=== PATIENT | male | born 1940 | race Caucasian/White ===

== ENCOUNTER 2016-12-21 19:39 | Emergency (ER) | payer MEDICARE ==
[2015-10-19 10:37] VITALS: BMI 25.6
[~2016-12-21 19:39] MED LIST: ADVAIR 250/501 DISK INH; BAYER CHEWABLE81 MG PO; BRILINTA90 MG PO; CARTIA XT180 MG PO; COREG 3.1253.125 MG PO; HYDROCHLOROTHIA25 MG PO; LISINOPRIL5 MG PO; LOVASTATIN20 MG PO; PLAVIX75 MG PO
[2016-12-21 20:20] LABS: APPEARANCE CLEAR (CLEAR); BILIRUBIN NEGATIVE (NEGATIVE); COLOR YELLOW (YELLOW); GLUCOSE NEGATIVE (NEGATIVE); KETONE NEGATIVE (NEGATIVE); LEUKOCYTE ESTERASE NEGATIVE (NEGATIVE); NITRITE NEGATIVE (NEGATIVE); PROTEIN NEGATIVE (NEGATIVE); SPECIFIC GRAVITY 1.015 (1.005-1.020); UROBILINOGEN NORMAL (NORMAL)
[2016-12-21 20:22] LABS: BASOPHILS 0.1 % (0-2); EOSINOPHILS 0.6 % (0-7); HEMATOCRIT 40.7 % (42.0-54.0); HEMOGLOBIN 14.2 g/dL (13.5-17.5); IMMATURE GRANULOCYTES 0.2 % (0-5); LYMPHOCYTES 16.2 % (15-50); MCH 31.3 pg (26.0-34.0); MCHC 34.9 g/dL (31.0-37.0); MCV 89.6 fL (80.0-100.0); MEAN PLATELET VOLUME 10.3 fL (7.4-10.4); MONOCYTES 8.5 % (2-11); NEUTROPHILS 74.4 % (40-80); PLATELET COUNT 230 10x3/uL (130-400); RBC 4.54 10x6/uL (4.20-6.10); RDW 13.2 % (11.5-14.5); WBC 9.9 10x3/uL (4.8-10.8)
[2016-12-21 20:37] LABS: ALBUMIN 3.7 g/dL (3.4-5.0); ALKALINE PHOSPHATASE 97 U/L (46-116); ALT (SGPT) 28 U/L (10-68); CALC OSMOLALITY 264 mosm/kg (275-300); CALCIUM 8.8 mg/dL (8.5-10.1); CARBON DIOXIDE 27.3 mmol/L (21.0-32.0); CHLORIDE - SERUM 95 mmol/L (98-107); GLUCOSE 114 mg/dL (74-106); POTASSIUM - SERUM 3.9 mmol/L (3.5-5.1); PROTEIN - SERUM 7.3 g/dL (6.4-8.2); SODIUM 131 mmol/L (136-145); UREA NITROGEN 14 mg/dL (7-18); eGFR NON AFRICAN AMERICAN 77 mL/min (90-120)
[2016-12-21 20:45] LABS: CREATINE KINASE 133 UL (21-232); PRO BNP 195 pg/mL (0-450)
[2016-12-21 20:47] LABS: TROPONIN-I < 0.017 ng/mL (0.000-0.060)
== END 2016-12-21 22:30 | disposition home or self-care (01) ==
LOC: D.ER 19:39
PROVIDERS: Family Medicine
DX: I10 Essential (primary) hypertension (principal); Z91.14 Patient's other noncompliance with medication regimen

== ENCOUNTER 2018-02-28 10:44 | Outpatient (CLI) | payer MEDICARE ==
[~2018-02-28] VITALS: Ht 182.9 cm; Wt 90.9 kg
--- NOTE | ~2018-02-28 | HEMODYNAMI ---
PATIENT:JOSÉ LUIS MARTINEZ MEDICAL RECORD: [id number] : 36 LOCATION:[facility] ADMISSION DATE: 02/28/18 Generatedon:02/28/201813:42 Patient name: JOSÉ LUIS MARTINEZ Patient #: [id number] SSN: : 1940 Date of study: 02/28/2018 Page: Of Hemodynamic Procedure Report Patient Data Patient Demographics Procedure consent was obtained First Name: JSOÉ LUIS Gender: Male Last Name: JUAN : 1940 Middle Initial: H Age: 77 year(s) Patient #: [id number] Race: Additional ID: [id number] Contact details [address]: [address] [place] [address] State: [place] City: [place] Zip code: [address] Past Medical History Allergies: No known allergies Admission Admission Data Admission Date: 02/28/2018 Admission Time: 10:44 Procedure Procedure Types Cath Procedure Diagnostic Procedure LHC LHC w/Coronaries Sedation Charges Moderate Sedation up to 30 minutes PCI Procedure PTCA PTCA Initial Procedure Description Procedure Date Procedure Date: 02/28/2018 Procedure Start Time: 13:00 Procedure End Time: 13:37 Procedure Staff Name Function Osorio Yang MD Performing Physician Mag Galvez RT Monitor Ian Marquez RN Nurse Nancy Powell RT Scrub Procedure Data Cath Procedure Fluoroscopy Diagnostic fluoroscopy Total fluoroscopy Time: 8.3 time: 8.3 min min Diagnostic fluoroscopy Total fluoroscopy dose: dose: 1091 mGy 1091 mGy Contrast Material Contrast Material Type Amount (ml) Isovue 300 94 Entry Location Entry Primary Successful Side Size Upsize Upsize Entry Closure Succes sful Closure Location (Fr) 1 (Fr) 2 (Fr) Remarks Device Remarks Femoral Right 5 Fr 6 Fr Exoseal artery Short Estimated blood loss: 5 ml Diagnostic catheters Device Type Used For End Catheter Placement MULTIPACK JL 4.0 5Fr Left Coronary catheter Angiography MULTIPACK 3DRC 5Fr Right Coronary catheter Angiography MULTIPACK Pigtail 5 Fr LV Angiography catheter Procedure Complications No complications Procedure Medications Medication Administration Route Dosage Oxygen etCO2 Nasal cannula 2 l/min Lidocaine 2% added to field 20 Heparin Flush Bag added to field 2 bags (1000units/500ml NS) 0.9% NaCl I.V. 100 ml/hr Versed I.V. 1 mg Fentanyl I.V. 50 mcg Versed I.V. 1 mg Fentanyl I.V. 50 mcg Versed I.V. 1 mg Heparin Bolus I.V. 9000 units Versed I.V. 1 mg Plavix P.O. 75 mg Hemodynamics Rest Heart Rate: 99 (bpm) Pressure Samples Time Site Value (mmHg) Purpose Heart Use Rate(bpm) 13:12 LV 118/33,37 Snapshot 70 13:12 AO 110/69(89) Pullback 77 13:12 LV 99/17,22 Pullback 77 Gradients Valve Time Site 1 Site 2 Mean SEP/DFP Peak To Heart Use (mmHg) (sec/min) Peak Rate (mmHg) (bpm) Aortic 13:12 LV AO 0 77 99/17,22 110/69(89) Calculations Valve P-P Mean Valve Index Valve Source Name Gradient Area Flow (cm2) Aortic 0 0 Snapshots Pre Cath Intra NCS Post Cath Vital Signs Time Heart Resp SPO2 etCO2 NIBP (mmHg) Rhythm Pain Sedation Rate (ipm) (%) (mmHg) Status Level (bpm) 12:50:07 71 12 99 33.6 136/68(112) NSR 0 (11) 10(A) , No pain 12:54:21 65 14 99 33.5 120/82(99) NSR 0 (11) 10(A) , No pain 12:58:33 72 13 98 35.8 109/63(91) NSR 0 (11) 10(A) , No pain 13:02:43 72 14 99 10.4 111/65(82) NSR 0 (11) 9(A) , No pain 13:06:55 74 18 97 36.5 100/64(80) NSR 0 (11) 9(A) , No pain 13:11:03 82 13 96 33.5 111/67(94) NSR 0 (11) 9(A) , No pain 13:15:09 80 28 98 30.5 102/71(86) NSR 0 (11) 9(A) , No pain 13:19:17 79 23 96 14.1 108/69(86) NSR 0 (11) 9(A) , No pain 13:23:24 83 16 96 30.5 108/70(93) NSR 0 (11) 9(A) , No pain 13:27:34 80 30 97 33.5 108/66(87) NSR 0 (11) 9(A) , No pain 13:31:44 79 17 97 1.4 121/68(91) NSR 0 (11) 9(A) , No pain 13:35:58 80 15 97 26.1 121/73(94) NSR 0 (11) 10(A) , No pain 13:41:40 81 12 98 29 126/80(111) NSR 0 (11) 10(A) , No pain Medications Time Medication Route Dose Verified Delivered Reason Notes Effectiveness by by 12:49:45 Oxygen etCO2 2 Osorio Buffie used for Nasal l/min Isrrael Marquez RN procedure cannula 12:49:52 Lidocaine 2% added 20ml Osorio Osorio for local to vial Isrrael Yang MD anesthetic field 12:49:58 Heparin Flush added 2 Osorio Osorio used for Bag to bags Isrrael Yang MD procedure (1000units/500ml field NS) 12:50:09 0.9% NaCl I.V. 100 Osorio Osorio used for ml/hr Isrrael Yang MD procedure 12:56:46 Versed I.V. 1 mg Osorio Buffie for sedation Isrrael Marquez RN 12:56:52 Fentanyl I.V. 50 Osorio Buffie for sedation mcg Isrrael Marquez RN 13:02:03 Versed I.V. 1 mg Osorio Buffie for sedation Isrrael Marquez RN 13:02:07 Fentanyl I.V. 50 Osorio Buffie for sedation mcg Isrrael Marquez RN 13:10:57 Versed I.V. 1 mg Osorio Buffie for sedation Isrrael Marquez RN 13:17:53 Heparin Bolus I.V. 9000 Osorio Buffie for verif ied units Isrrael Marquez RN anticoagulation with dr yang 13:24:13 Versed I.V. 1 mg Osorio Buffie for sedation Isrrael Marquez RN 13:41:07 Plavix P.O. 75 mg Osorio Buffie for Isrrael Marquez RN anticoagulation Procedure Log Time Note 12:31:11 Ina Marquez RN sent for patient. Start room use. 12:31:12 Time tracking: Regular hours (M-F 7:00 - 5:00) 12:31:16 Plan of Care:Hemodynamics will remain stable., Cardiac rhythm will remain stable., Comfort level will be maintained., Respiratory function will remain adequate., Patient/ family verbilizes understanding of procedure., Procedure tolerated without complication., Recovers from procedure without complications.. 12:33:29 Diagnostic Cath Status : Elective 12:39:23 Patient received from Pre/Post Procedure Room to CCL 1 Alert and oriented. Tansferred to table in Supine position. 12:39:24 Warm blankets applied, and abel hugger turned on for patient comfort. 12:39:24 Correct patient and procedure confirmed by team. 12:39:26 Signed procedure consent form obtained from patient. 12:39:28 ECG and BP/O2 sat monitors applied to patient. 12:48:56 Baseline sample Acquired. 12:48:56 Vital chart was started 12:49:05 Baseline sample Acquired. 12:49:09 Rhythm: sinus rhythm 12:49:29 Full Disclosure recording started 12:49:45 Oxygen 2 l/min etCO2 Nasal cannula was administered by Ian Marquez RN; used for procedure; 12:49:46 H&P Date Dictated: 02/27/2018 Within 30 days and on chart., H&P Addendum completed by physician on day of procedure. (MUST COMPLETE FOR ALL OUTPATIENTS). 12:49:48 Pre-procedure instructions explained to patient. 12:49:48 Pre-op teaching completed and patient verbalized understanding. 12:49:51 Family in waiting room. 12:49:52 Lidocaine 2% 20ml vial added to field was administered by Osorio Yang MD; for local anesthetic; 12:49:52 Patient NPO since Midnight. 12:49:58 Heparin Flush Bag (1000units/500ml NS) 2 bags added to field was administered by Osorio Yang MD; used for procedure; 12:49:59 Patient allergic to No known allergies 12:50:01 Is the patient allergic to Iodine/contrast media? No. 12:50:07 Is patient on blood thinner?Yes 12:50:09 0.9% NaCl 100 ml/hr I.V. was administered by Osorio Yang MD; used for procedure; 12:50:11 ACC The patient was administered the following blood thiners within the last 24 hours: ACCPlavix 12:50:14 Patient diabetic? No. 12:50:15 ----Pre-sedation anethsthesia assessment.---- 12:50:17 Previous problem with sedation/anesthesia? No ? 12:50:20 Snore? Yes 12:50:21 Sleep apnea? No 12:50:23 Deviated septum? No 12:50:24 Opens mouth fully? Yes 12:50:26 Sticks out tongue? Yes 12:50:29 Airway obstruction? No ? 12:50:35 Dentures? Yes out 12:50:44 Pre procedure: right dorsailis pedis pulse 1+ Palpable, but thready & weak; easily obliterated 12:50:50 Patient pain scale 0/10 ?. 12:53:10 IV patent on arrival in left forearm with 0.9% NaCl at O. 12:53:12 Lab results completed and on chart. 12:53:18 Right groin area was prepped with chlora-prep and draped in sterile fashion 12:53:19 Alarms reviewed by R. N. 12:53:26 Sharps counted by scrub and verified by R.N. 12:53:27 Physician arrived 12:53:28 --------ALL STOP TIME OUT------ 12:53:28 Final Timeout: patient, procedure, and site verified with staff and physician. All members of the team are in agreement. 12:53:30 Right groin site verified by team. 12:53:32 Physical assessment completed. ASA score P 2 - A patient with mild systemic disease as per Osorio Yang MD. 12:53:36 Sedation plan: IV Moderate Sedation Medication:Versed, Fentanyl 12:53:42 Use device set Femoral Dx 12:53:43 ACIST Syringe (95911) opened to sterile field. 12:53:43 Bag Decanter () opened to sterile field. 12:53:43 Medline Cath Pack ([id number]) opened to sterile field. 12:53:44 DIAGNOSTIC WIRE .035 260cm J wire (745352) opened to sterile field. 12:53:45 ACIST Hand Control (97446) opened to sterile field. 12:53:46 ACIST Manifold (18777) opened to sterile field. 12:53:46 DIAGNOSTIC Multipack 5Fr catheter set (FB2379) opened to sterile field. 12:53:46 Tegaderm 4 x 4 (1626W) opened to sterile field. 12:53:48 SHEATH Prelude 5Fr 0.035 (ULZ-5K-41-035) opened to sterile field. 12:56:35 Zero performed for pressure channel P1 12:56:46 Versed 1 mg I.V. was administered by Ian Marquez RN; for sedation; 12:56:52 Fentanyl 50 mcg I.V. was administered by Ian Marquez RN; for sedation; 13:00:22 Procedure started. 13:00:29 Local anesthetic to right femoral artery with Lidocaine 2% by Osorio Yang MD.INITIAL ACCESS ONLY 13:00:43 A 5 Fr sheath was inserted into the Right Femoral artery 13:02:03 Versed 1 mg I.V. was administered by Ian Marquez RN; for sedation; 13:02:07 Fentanyl 50 mcg I.V. was administered by Ian Marquez RN; for sedation; 13:05:51 A MULTIPACK JL 4.0 5Fr catheter was advanced over the wire and used for Left Coronary Angiography. 13:09:02 LCA angiography performed. 13:09:05 Injector settings: Ml/sec: 3, Volume: 6, 13:09:22 Catheter removed. 13:09:27 A MULTIPACK 3DRC 5Fr catheter was advanced over the wire and used for Right Coronary Angiography. 13:10:43 RCA angiography performed. 13:10:46 Injector settings: Ml/sec: 3, Volume: 6, 13:10:51 Catheter removed. 13:10:57 Versed 1 mg I.V. was administered by Ian Marquez RN; for sedation; 13:11:45 A MULTIPACK Pigtail 5 Fr catheter was advanced over the wire and used for LV Angiography. 13:12:06 LV hemodynamics recorded. 13:12:08 LV gram done using [place] 13:12:11 Injector settings: Ml/sec: 5, Volume: 15, 13:12:22 EF : 55 % 13:13:25 Catheter removed. 13:13:35 Proceeding to intervention. 13:13:53 BMW 300cm Adel 2 J wire ([id number]) opened to sterile field. 13:13:54 INFLATOR Merit Amandak (HW0599) opened to sterile field. 13:13:55 SHEATH Prelude 6Fr 0.035 (UWQ-4K-33-035) opened to sterile field. 13:14:36 GUIDE 6FR AR 1.0 catheter (HX8VW42) opened to sterile field. 13:15:07 TUBING High Pressure Extension Tubing (Isrrael) ([id number]) opened to sterile field. 13:16:53 Sheath upsized to a 6 Fr Short. 13:16:59 6 Fr sr 1 guide catheter was inserted over the wire 13:17:10 bmw wire advanced. 13:17:53 Heparin Bolus 9000 units I.V. was administered by Ian Marquez RN; for anticoagulation; verified with dr yang 13:18:18 Wire advanced across lesion. 13:20:35 Inflate balloon Inflation number: 1 A EMERGE OTW 3.5 x 15 balloon ([id number]) was prepped and advanced across the Mid RCA, then inflated to 6 ARTHUR for 0:10 (min:sec). 13:21:01 Inflation number: 2 The EMERGE OTW 3.5 x 15 balloon ([id number]) was reinflated across the Mid RCA, to 10 ARTHUR for 0:10 (min:sec). 13:22:33 Inflation number: 3 The EMERGE OTW 3.5 x 15 balloon ([id number]) was reinflated across the Mid RCA, to 10 ARTHUR for 0:10 (min:sec). 13:24:13 Versed 1 mg I.V. was administered by Ian Marquez RN; for sedation; 13:24:29 Inflation number: 4 The EMERGE OTW 3.5 x 15 balloon ([id number]) was reinflated across the Mid RCA, to 8 ARTHUR for 0:10 (min:sec). 13:34:40 Balloon removed over the wire. 13:34:42 Wire removed. 13:34:42 Guide catheter removed. 13:35:16 EXOSEAL 6Fr (EX600) opened to sterile field. 13:35:27 Sheath removed intact; hemostasis achieved with Exoseal to the Right Femoral artery. 13:35:51 Procedure ended.(Physican Out) 13:36:06 Fluoroscopy time 08.30 minutes. 13:36:10 Flurop Dose total: 1091 13:36:10 Fluoroscopy dose: 1091 mGy 13:36:23 Contrast amount:Isovue 300 94ml. 13:36:25 Sharps counted by scrub and verified by R.N. 13:36:26 Insertion/operative site no bleeding no hematoma. 13:36:28 Post-op/insertion site Right Femoral artery dressed using a 4 x 4 and Tegaderm. 13:36:31 Post right femoral artery:stable 13:36:33 Post Procedure Pulses reassessed and unchanged 13:36:36 Post procedure rhythm: unchanged. 13:36:39 Estimated blood loss: 5 ml 13:36:41 Post procedure instruction explained to patient.Patient verbalizes understanding. 13:36:41 Patient needs reinforcement of post procedure teaching. 13:37:05 Procedure type changed to Cath procedure, Diagnostic procedure, LHC, LHC w/Coronaries, Sedation Charges, Moderate Sedation up to 30 minutes, PCI procedure, PTCA, PTCA Initial 13:37:07 Procedure and supply charges have been captured, reviewed, submitted and are correct. 13:37:12 Procedure Complication : No complications 13:37:14 Vital chart was stopped 13:37:15 See physician's report for complete and final results. 13:37:18 Report given to Pre/Post Procedure Room. 13:37:21 Patient transfered to Pre/Post Procedure Room with Stretcher. 13:37:22 Procedure ended. 13:37:22 Full Disclosure recording stopped 13:37:36 ACC-PCI Only Patient was given prescriptions, or instructed by Osorio Yang MD to start/continue the following medications upon discharge: Plavix 13:37:37 End room use (Document Last) 13:41:07 Plavix 75 mg P.O. was administered by Ian Marquez RN; for anticoagulation; Intervention Summary Intervention Notes Time ActionType Lesion and Equipment Action# Pressure Duration Attributes Used 13:20:35 Inflate Mid RCA EMERGE OTW 1 6 00:10 balloon 3.5 x 15 balloon ([id number]) 13:21:01 Reinflate Mid RCA EMERGE OTW 2 10 00:10 balloon 3.5 x 15 balloon ([id number]) 13:22:33 Reinflate Mid RCA EMERGE OTW 3 10 00:10 balloon 3.5 x 15 balloon ([id number]) 13:24:29 Reinflate Mid RCA EMERGE OTW 4 8 00:10 balloon 3.5 x 15 balloon ([id number]) Device Usage Item Name Manufacture Quantity Catalog Number Hospital Part Current Minimal Lot# / Charge Number Stock Stock Serial# Code ACIST Syringe Acist 1 54587 849778 838781 [id number] 20 (17250) Medical Systems Inc Bag Decanter Microtek 1 2001S 608013 94451 437450 5 () Medical Inc. Medline Cath Cardinal 1 [id number] 602587 47854 883936 5 Pack Health ([id number]) DIAGNOSTIC WIRE St Jacob 1 346579 955004 697151 811205 30 .035 260cm J wire (659334) ACIST Hand Acist 1 89362 204367 040535 442303 5 Control (61260) Medical Systems Inc ACIST Manifold Acist 1 59056 611411 429584 923281 5 (09747) Medical Systems [facility] DIAGNOSTIC Cardinal 1 [id number] 418149 18523 676968 30 Multipack 5Fr Health catheter set (KU3805) Tegaderm 4 x 4 3M 1 1626W 775034 632109 852870 5 (1626W) SHEATH Prelude Merit 1 ICW-4J-27-035 368813 290812 509716 5 5Fr 0.035 Medical (CEQ-1S-53-035) MULTIPACK JL Cardinal 1 [id number] 5 4.0 5Fr Health catheter MULTIPACK 3DRC Cardinal 1 984761 5 5Fr catheter Health MULTIPACK Cardinal 1 323269 5 Pigtail 5 Fr Health catheter BMW 300cm George 1 [id number] 978168 784003 719073 5 Adel 2 J Vascular wire ([id number]) INFLATOR Merit Merit 1 PL1302 289381 048652 149187 15 BasixCompak Medical (GP5703) SHEATH Prelude Merit 1 AZZ-2K-12-35 893896 3713030 687190 5 6Fr 0.035 Medical (RQC-9N-55-035) GUIDE 6FR AR Medtronic 1 [id number] 197009 48281 368766 1 1.0 catheter (PX4LE46) TUBING High Merit 1 [id number] 836834 57185 679974 10 Pressure Medical Extension Tubing (Yang) (NR9787S) EMERGE OTW 3.5 Millstone 1 [id number] 695298 725792 554574 5 [id number] x 15 balloon Scientific ([id number]) EXOSEAL 6Fr Cardinal 1 EX600 554748 572837 770188 10 (EX600) Health Signature Audit [place] Stage Time Signature Unsigned Intra-Procedure 02/28/2018 Mag Galvez 1:42:02 PM RT(R) Signatures Monitor : Mag Galvez RT Signature : Date : Time : [id number] [place] [address]
[2018-02-28 11:17] VITALS: BP 161/71; Ht 182.9 cm; Wt 90.9 kg
[2018-02-28 11:36] LABS: BASOPHILS 0.1 % (0-2); EOSINOPHILS 0.7 % (0-7); HEMATOCRIT 39.9 % (42.0-54.0); HEMOGLOBIN 13.8 g/dL (13.5-17.5); IMMATURE GRANULOCYTES 0.4 % (0-5); LYMPHOCYTES 15.5 % (15-50); MCH 31.5 pg (26.0-34.0); MCHC 34.6 g/dL (31.0-37.0); MCV 91.1 fL (80.0-100.0); MEAN PLATELET VOLUME 9.9 fL (7.4-10.4); MONOCYTES 11.2 % (2-11); NEUTROPHILS 72.1 % (40-80); PLATELET COUNT 255 10x3/uL (130-400); RBC 4.38 10x6/uL (4.20-6.10)
[2018-02-28 11:48] LABS: CALC OSMOLALITY 260 mosm/kg (275-300); CALCIUM 8.6 mg/dL (8.5-10.1); CARBON DIOXIDE 30.7 mmol/L (21.0-32.0); CHLORIDE - SERUM 95 mmol/L (98-107); GLUCOSE 101 mg/dL (74-106); POTASSIUM - SERUM 4.2 mmol/L (3.5-5.1); SODIUM 130 mmol/L (136-145); UREA NITROGEN 13 mg/dL (7-18); eGFR NON AFRICAN AMERICAN 76 mL/min (90-120)
== END 2018-02-28 17:25 | disposition home or self-care (01) ==
LOC: D.CATH 10:44
PROVIDERS: Internal Medicine Cardiovascular Disease
DX: I25.119 Atherosclerotic heart disease of native coronary artery with unspecified angina pectoris (principal); T82.855A Stenosis of coronary artery stent, initial encounter; Z01.812 Encounter for preprocedural laboratory examination

== ENCOUNTER 2018-07-30 03:01 | Inpatient (IN) | payer MEDICARE ==
[~2018-07-30] VITALS: Ht 182.9 cm; Wt 91.4 kg
[2018-07-30 03:36] LABS: BASOPHILS 0.1 % (0-2); EOSINOPHILS 0 % (0-7); HEMATOCRIT 36.3 % (42.0-54.0); IMMATURE GRANULOCYTES 0.6 % (0-5); MCH 31.3 pg (26.0-34.0); MCHC 35.8 g/dL (31.0-37.0); MCV 87.5 fL (80.0-100.0); MEAN PLATELET VOLUME 9.6 fL (7.4-10.4); MONOCYTES 10.2 % (2-11); NEUTROPHILS 80.1 % (40-80); PLATELET COUNT 237 10x3/uL (130-400); RBC 4.15 10x6/uL (4.20-6.10); RDW 13.5 % (11.5-14.5); WBC 10.4 10x3/uL (4.8-10.8)
[2018-07-30 03:41] LABS: APTT 34.8 SECONDS (22.8-39.4); INR 1.15 (0.85-1.17); PROTIME 14.2 SECONDS (11.6-15.0)
[2018-07-30 03:57] LABS: ALBUMIN 3.2 g/dL (3.4-5.0); ALKALINE PHOSPHATASE 101 U/L (46-116); ALT (SGPT) 23 U/L (10-68); BILIRUBIN - TOTAL 0.45 mg/dL (0.2-1.3); CALCIUM 8.3 mg/dL (8.5-10.1); CARBON DIOXIDE 24.7 mmol/L (21.0-32.0); CKMB 2.8 U/L (0.0-3.6); CREATINE KINASE 142 UL (21-232); CREATININE - SERUM 0.9 mg/dL (0.6-1.3); GLUCOSE 105 mg/dL (74-106); POTASSIUM - SERUM 3.6 mmol/L (3.5-5.1); PRO BNP 745 pg/mL (0-450); UREA NITROGEN 12 mg/dL (7-18); eGFR NON AFRICAN AMERICAN 86 mL/min (90-120)
[2018-07-30 03:59] LABS: CALC OSMOLALITY 237 mosm/kg (275-300); CHLORIDE - SERUM 83 mmol/L (98-107); SODIUM 118 mmol/L (136-145); TROPONIN-I < 0.017 ng/mL (0.000-0.060)
--- NOTE | 2018-07-30 04:17 | NUR ---
PT STATES HAS HAD TROUBLE WITH URINATION. BLADDER SCAN PERFORMED. 180ML NOTED. PT THEN VOIDED 100ML.
[2018-07-30 04:28] LABS: APPEARANCE CLEAR (CLEAR); BILIRUBIN NEGATIVE (NEGATIVE); COLOR YELLOW (YELLOW); GLUCOSE NEGATIVE (NEGATIVE); KETONE SMALL mg/dL (NEGATIVE); NITRITE NEGATIVE (NEGATIVE); PROTEIN NEGATIVE (NEGATIVE); UROBILINOGEN NORMAL (NORMAL)
--- NOTE | 2018-07-30 04:31 | NUR ---
INSTRUCTED TO STOP IV FLUIDS AND OBTAIN FLU SWAB.
[2018-07-30 05:34] VITALS: BP 150/88; BMI 26.5
--- NOTE | 2018-07-30 06:00 | NUR ---
[facility] RECIEVED REPORT FROM [facility]. PT ARRIVED IN BED. PT INITIAL VSS, PT IS CURRENTLY ON DROPLET ISOLATION. TESTED + FOR FLU. AT BEDSIDE. PT 02 @2L. DENIES ANY NEED FOR PAIN. PT IS A POOR HISTORIAN, BUT WAS ABLE TO ANSWER MOST OF THE QUESTIONS. PT STATES HE WANT SOMETHING TO HELP HIM GO TO SLEEP, BUT NO MEDS ORDERED BY THE PROVIDER AT THIS TIME. PT IS CURRENTLY RESTING IN BED WITH EYES OPEN. CL IN REACH, BED IN LOW, SR UP X2.
[2018-07-30 07:54] VITALS: BP 164/80
--- NOTE | 2018-07-30 08:41 | NUR ---
PT C/O NOT BEING ABLE TO SLEEP AND DEMANDING A SLEEP MEDICATION. EXPLAINED TO PT WE ARENT GOING TO GIVE SLEEP MEDICATIONS IN THE ORTHOTIST OR PROSTHETIST. PT STATES "WELL I HAVENT SLEPT IN 2 DAYS" MADE PT COMFORTABLE AND WILL TRY TO ENCOURAGE HIM TO TRY AND REST. PT NOW CALLING STATING "I CANT BREATHE, I NEED SOMETHING NOW" RR NONLABORED WITH NC @3L IN PLACE. PAGED RESPIRATORY AND THEY ARE HERE TO GIVE PRN [place] REQUESTED. NO FURTHER NEEDS. WILL CTM.
[2018-07-30 10:48] LABS: BASOPHILS 0 % (0-2); EOSINOPHILS 0 % (0-7); HEMATOCRIT 31.6 % (42.0-54.0); HEMOGLOBIN 11.4 g/dL (13.5-17.5); IMMATURE GRANULOCYTES 0.5 % (0-5); LYMPHOCYTES 4.6 % (15-50); MCH 31.1 pg (26.0-34.0); MCHC 36.1 g/dL (31.0-37.0); MCV 86.1 fL (80.0-100.0); MEAN PLATELET VOLUME 9.5 fL (7.4-10.4); MONOCYTES 10.8 % (2-11); NEUTROPHILS 84.1 % (40-80); PLATELET COUNT 214 10x3/uL (130-400); RBC 3.67 10x6/uL (4.20-6.10); RDW 13.4 % (11.5-14.5); WBC 10.2 10x3/uL (4.8-10.8)
[2018-07-30 11:06] LABS: CALC OSMOLALITY 232 mosm/kg (275-300); CALCIUM 7.9 mg/dL (8.5-10.1); CARBON DIOXIDE 28.5 mmol/L (21.0-32.0); CREATININE - SERUM 0.8 mg/dL (0.6-1.3); GLUCOSE 116 mg/dL (74-106); POTASSIUM - SERUM 3.2 mmol/L (3.5-5.1); UREA NITROGEN 11 mg/dL (7-18); eGFR NON AFRICAN AMERICAN > 90 mL/min (90-120)
[2018-07-30 11:08] LABS: CHLORIDE - SERUM 82 mmol/L (98-107); SODIUM 115 mmol/L (136-145)
--- NOTE | 2018-07-30 11:14 | NUR ---
PT NEEDING TELEMETRY. PAGED TELEMETRY MONITER TECH [facility]END[facility] AND THEY HAVE NO MONITERS CURRENTLY. WILL CONTINUE TO WAIT.
[2018-07-30 11:17] VITALS: BP 118/56
[2018-07-30 11:26] LABS: % SATURATION 5 % (15-55); IRON 12 ug/dl (35-150); TOTAL IRON BIND CAPACITY 208 ug/dl (260-445); UNSAT IRON BIND CAPACITY 196 ug/dl (150-375)
[2018-07-30 11:27] LABS: MAGNESIUM - SERUM 1.3 mg/dL (1.8-2.4)
--- NOTE | 2018-07-30 11:31 | NUR ---
LAB CALLED CRITICAL LOW SODIUM AND CHLORIDE. NOTIFIED PRIMARY AND NO NEW ORDERS.
[2018-07-30] MEDS ORDERED: LISINOPRIL40 MG PO (12:17)
[2018-07-30 12:50] LABS: CKMB 3.7 U/L (0.0-3.6); CREATINE KINASE 172 UL (21-232); TROPONIN-I < 0.017 ng/mL (0.000-0.060)
[2018-07-30 13:25] VITALS: Ht 182.9 cm; Wt 91.4 kg
--- NOTE | 2018-07-30 14:54 | NUR ---
PT STATES HE FEELS JUST HOT AND CRAPPY OVERALL. TURNED PTS AIR DOWN AND WILL TRY TO FIND HIM A FAN. PT LYING BACK IN BED TRYING TO GET SOME REST. LEAVING TO GO GET SOME REST SHE WAS PRETTY SICK HERSELF WELL. PT VOICED THANKS AND DENIES ANY FURTHER NEEDS AT THIS TIME. CL IN REACH, BED IN LOWEST, SIDE RAILS X2. WILL CTM.
[2018-07-30 15:28] VITALS: BP 168/87
--- NOTE | 2018-07-30 16:21 | NUR ---
PT STILL C/O SOB AND NOT BEING ABLE TO BREATH. PAGED RESPIRATORY FOR A TREATMENT. PULSE OX 97% ON 2L NC. WILL ALSO PROVIDE PT WITH A FAN TO SEE IF IT HELPS. PT VOICED THANKS AND DENIES ANY FURTHER NEEDS AT THIS TIME. CL IN REACH. WILL CTM.
[2018-07-30 18:00] LABS: CKMB 6.3 U/L (0.0-3.6); TROPONIN-I < 0.017 ng/mL (0.000-0.060)
[2018-07-30 18:01] LABS: CREATINE KINASE 265 UL (21-232)
--- NOTE | 2018-07-30 19:51 | NUR ---
PT EXTREMELY ANXIOUS AND AGITATED. DISCUSSED WITH PRIMARY AND GOT NEW MEDICATION TO HELP WITH ANXIETY. PT VOICED TAHNKS AND IS ALL SET UP FOR BED TRYING TO REST. NO CURRENT NEEDS. WILL CTM. BEDSIDE SHIFT REPORT GIVEN.
--- NOTE | 2018-07-30 20:15 | NUR ---
PATIENT RESTING IN BED WITH EYES CLOSED AND NO S/S OF DISTRESS. BED IN LOWEST POSITION AND CALL LIGHT WITHIN REACH. WILL CONTINUE TO MONITOR.
[2018-07-30 21:01] VITALS: BP 169/86
--- NOTE | 2018-07-30 21:23 | NUR ---
NOTIFIED BY CT THAT THE PATIENT IS NOT COOPERATING AND THEY ARE BRINGING HIM BACK TO THE ROOM. STATED THEY WILL TRY AGAIN LATER.
[2018-07-30 23:16] LABS: CKMB 7.9 U/L (0.0-3.6); CREATINE KINASE 278 UL (21-232); TROPONIN-I < 0.017 ng/mL (0.000-0.060)
--- NOTE | 2018-07-31 00:15 | NUR ---
PATIENT SITTING UP ON THE SIDE OF THE BED PER THE PATIENT'S REQUEST. PATIENT DENIED NEEDS AND SAID HE WANTED TO SIT UP FOR A MINUTE. I ENSURED THE PATIENT'S ELIZABETH MAT WAS TURNED ON PRIOR TO LEAVING THE ROOM. I STEPPED OUTSIDE OF THE ROOM AND REMOVED ISOLATION PPE. PATIENT STOOD UP OFF OF THE BED. I AKSED THE PATIENT WHERE HE WAS GOING. HE STATED "I HAVE TO GO TO THE BATHROOM". I WAS PUTTING BACK ON ISOLATION PPE I ASKED THE PATIENT TO SIT DOWN AND TOLD HIM I WOULD HELP HIM. THE PATIENT STATED "I'M OK" AND HEADED FOR THE BATHROOM. I WAS ENTERING THE ROOM I HEARD SEVERAL LOUD NOISES IN THE BATHROOM. WHEN I ENTERED THE BATHROOM THE PATIENT WAS LYING IN THE SHOWER ON HIS BACK WITH HIS HEAD AGAINST THE WALL. THE PATIENT STATED "I FELL". AT THAT TIME I TOLD THE PATIENT TO HOLD ON WHILE I GOT HELP. I CALLED OUT TO THE DESK FOR CORRIE ALCAZAR TO HELP ME GET THE PATIENT UP. OTTONIEL AND I ASSISTED THE PATIENT TO HIS FEET AND HELPED HIM BACK TO BED. UPON ASSESSMENT THE PATIENT HAS A LACERATION TO HIS HEAD, AND A LACERATION TO HIS RIGHT ELBOW. I CLEANSED BOTH WOUNDS. THE PATIENT WAS ALERT AND ORIENTED AT THIS TIME.
--- NOTE | 2018-07-31 00:19 | NUR ---
NOTIFIED POLICE MATRON, RUTHANN THAT THE PATIENT HAD FALLEN.
--- NOTE | 2018-07-31 00:20 | NUR ---
NOTIFIED DR. MUELLER THAT THE PATIENT HAD FALLEN IN THE BATHROOM. I TOLD DR. MUELLER THAT THE PATIENT HAD HIT HIS HEAD IN THE SHOWER, AND THAT THE PATIENT HAD A LACERATION TO HIS HEAD AND RIGHT ELBOW. DR. MUELLER ORDERED A STAT CT OF THE HEAD.
--- NOTE | 2018-07-31 00:33 | NUR ---
NOTIFIED RADIOLOGY THAT I PUT AN ORDER IN FOR A STAT HEAD CT.
--- NOTE | 2018-07-31 00:35 | NUR ---
NOTIFIED SARAH MARTINEZ, THE PATIENT'S SPOUSE THAT THE PATIENT HAD FALLEN.
--- NOTE | 2018-07-31 01:27 | NUR ---
NOTIFIED BY DR. GUTIERRES THAT THE PATIENT SHOWED A SMALL BLEED ON THE CT SCAN
--- NOTE | 2018-07-31 01:32 | NUR ---
NOTIFIED DR. MUELLER THAT DR. GUTIERRES HAD CALLED BACK WITH RESULTS. READ DR. MUELLER THE RESULTS OF THE CT SCAN. I ALSO NOTIFIED DR. MUELLER THAT DR. GUTIERRES STATED THAT THE PATIENT WAS NEGATIVE FOR A PE.
--- NOTE | 2018-07-31 01:45 | NUR ---
NOTIFIED DR. ADAMS THAT HE HAD BEEN CONSULTED ON THE PATIENT. EXPLAINED TO DR. ADAMS THAT THE PATIENT WAS FOUND ON THE FLOOR IN THE BATHROOM AND THAT THE PATIENT STATED HE FELL. I ALSO READ DR. ADAMS THE RESULTS OF THE PATIENT'S STAT CT SCAN. DR. ADAMS ORDERED Q1H NEURO CHECKS AND A REPEAT HEAD CT AT 0700. ORDERED ENTERED.
[2018-07-31 02:01] VITALS: BP 176/91
[2018-07-31 06:11] VITALS: BP 153/83
[2018-07-31 08:08] VITALS: BP 138/82
[2018-07-31 08:11] LABS: BASOPHILS 0 % (0-2); EOSINOPHILS 0 % (0-7); HEMATOCRIT 34.9 % (42.0-54.0); HEMOGLOBIN 12.5 g/dL (13.5-17.5); IMMATURE GRANULOCYTES 0.3 % (0-5); LYMPHOCYTES 9.4 % (15-50); MCH 30.9 pg (26.0-34.0); MCHC 35.8 g/dL (31.0-37.0); MCV 86.4 fL (80.0-100.0); MEAN PLATELET VOLUME 9.6 fL (7.4-10.4); MONOCYTES 11.6 % (2-11); NEUTROPHILS 78.7 % (40-80); PLATELET COUNT 224 10x3/uL (130-400); RBC 4.04 10x6/uL (4.20-6.10); RDW 13.5 % (11.5-14.5)
--- NOTE | 2018-07-31 08:17 | NUR ---
AM MEDS GIVEN AT THIS TIME. PT A/O X4, PT A LITTLE SOB ON 2L NC. INSTRUCTED PT TO TAKE DEEP BREATHS. PROVIDED PT WITH URINAL SO HE COULD URINATE. PT VOIDED ABOUT 250CC OF YELLOW URINE. RT AC IV SL. MONITOR SHOWING ST 104 WITH PAC. INSTRUCTED PT TO CALL WHEN HE NEEDS ASSISTANCE, NOT TO GET UP BY HIMSELF. PT VERBALIZED UNDERSTANDING. CALL LIGHT IN REACH, ELIZABETH ALARM ON. DOOR LONGTERM OPEN. NAD NOTED, WILL CONTINUE TO MONITOR.
[2018-07-31 08:23] LABS: CALC OSMOLALITY 242 mosm/kg (275-300); CALCIUM 8.6 mg/dL (8.5-10.1); CARBON DIOXIDE 27.2 mmol/L (21.0-32.0); CHLORIDE - SERUM 86 mmol/L (98-107); CREATININE - SERUM 0.8 mg/dL (0.6-1.3); GLUCOSE 92 mg/dL (74-106); SODIUM 121 mmol/L (136-145); UREA NITROGEN 10 mg/dL (7-18); eGFR NON AFRICAN AMERICAN > 90 mL/min (90-120)
[2018-07-31 08:31] LABS: POTASSIUM - SERUM 3.7 mmol/L (3.5-5.1)
[2018-07-31 09:24] LABS: FOLATE (FOLIC ACID) - SERUM 15.2 ng/mL (>3.0)
[2018-07-31 12:39] VITALS: BP 146/89
[2018-07-31 16:13] VITALS: BP 128/85
--- NOTE | 2018-07-31 19:20 | NUR ---
PATIENT SITTING UP ON SIDE OF BED. NO SIGNS OF DISTRESS. DENIES HAVING ANY NEEDS AT THIS TIME. BED IN LOWEST POSITION. SIDE RAILS UP. CALL LIGHT IN REACH. CONTINUE PLAN OF CARE.
--- NOTE | 2018-07-31 19:30 | NUR ---
PT SITTING UP ON SIDE OF BED. CALL LIGHT IN REACH. PT DENIES NEEDS OR PAIN AT THIS TIME. BED IN LOW. SIDE RAILS X2. WILL CONTINUE TO MONITOR.
[2018-07-31 20:00] VITALS: BP 174/90
--- NOTE | 2018-07-31 22:48 | NUR ---
PT LYING IN BED. CALL LIGHT IN REACH. DENIES NEEDS OR PAIN AT THIS TIME. BED IN LOW.
--- NOTE | 2018-07-31 23:47 | NUR ---
CALLED RESPIRATORY FOR PRN UPDRAFT PER PT REQUEST, PT STATES HE FEELS TIGHT AND VERY CONGESTED, BILATERAL WHEEZING ASSESSED
[2018-08-01] VITALS: BP 163/82
--- NOTE | 2018-08-01 02:17 | NUR ---
LYING IN BED ON RIGHT SIDE EYES CLOSED RESTING. RR EVEN AND UNLABORED. CALL LIGHT WITHIN REACH, FALL PRECAUTIONS IN PLACE. WILL CONTINUE TO MONITOR
[2018-08-01 04:00] VITALS: BP 155/86
--- NOTE | 2018-08-01 05:51 | NUR ---
LYING IN BED ON LEFT SIDE EYES CLOSED RESTING. RR EVEN AND UNLABORED. CONTINUES ON 2L VIA NC. CALL LIGHT WITHIN REACH, FALL PRECAUTIONS IN PLACE
[2018-08-01 07:35] VITALS: BP 131/57
--- NOTE | 2018-08-01 08:49 | NUR ---
PT CALLED REQUESTING PRN BREATHING TX. PAGED RESPIRATORY THERAPIST HUYEN AND HE WILL COME BY SHORTLY. PT VOICED THANKS NO FURTHER NEEDS. WILL CTM.
[2018-08-01 10:09] LABS: BASOPHILS 0 % (0-2); EOSINOPHILS 0.2 % (0-7); HEMATOCRIT 36.6 % (42.0-54.0); IMMATURE GRANULOCYTES 0.4 % (0-5); LYMPHOCYTES 8.9 % (15-50); MCH 31.2 pg (26.0-34.0); MCHC 35.5 g/dL (31.0-37.0); MCV 87.8 fL (80.0-100.0); MEAN PLATELET VOLUME 10.1 fL (7.4-10.4); MONOCYTES 6.6 % (2-11); NEUTROPHILS 83.9 % (40-80); RBC 4.17 10x6/uL (4.20-6.10); RDW 13.8 % (11.5-14.5); WBC 8.5 10x3/uL (4.8-10.8)
[2018-08-01 10:16] LABS: CALC OSMOLALITY 255 mosm/kg (275-300); CALCIUM 8.3 mg/dL (8.5-10.1); CARBON DIOXIDE 30.6 mmol/L (21.0-32.0); CHLORIDE - SERUM 88 mmol/L (98-107); CREATININE - SERUM 0.9 mg/dL (0.6-1.3); GLUCOSE 158 mg/dL (74-106); POTASSIUM - SERUM 4.2 mmol/L (3.5-5.1); SODIUM 126 mmol/L (136-145); UREA NITROGEN 12 mg/dL (7-18); eGFR NON AFRICAN AMERICAN 86 mL/min (90-120)
[2018-08-01 10:31] LABS: PLATELET COUNT 269 10x3/uL (130-400)
[2018-08-01 11:32] VITALS: BP 133/75
--- NOTE | 2018-08-01 17:17 | MORECARE ---
CASE MANAGEMENT DISCHARGE SUMMARY PATIENT: JOSÉ LUIS MARTINEZ UNIT: [id number] ADM DATE: 07/30/18 AGE: 77 : 38 SEX: M ROOM/BED: D.1204 AUTHOR: SUSANNE OROZCO PHYSICIAN: REFERRING PHYSICIAN: SURI MUELLER MD DATE OF SERVICE: 08/01/18 Discharge Plan Patient Name: JOSÉ LUIS MARTINEZ [facility] [facility] 1940 Planned Disposition: Anticipated Discharge Date: Discharge Date: Expected LOS: Initial Reviewer: [email or web address] Initial Review Date: 08/01/2018 Generated: 08/01/18 6:17 pm Coverage Notice Reviewer: [email or web address] - Linda Engel Notice Issued Date-Time: 08/01/2018 17:10 Notice Type: IM Discharge Notice Notice Delivered To: Family Member Relationship to Patient: Spouse Door Repairer Bus Name: SARAH Delivery Method: HAND - Hand Delivered Nina Days: Prior Verbal Notification: Recipient Understood Notice: Yes Recipient Signature: Yes Med Rec Note Co-signed by Attending: Coverage Notice Comment: Patient Name: JOSÉ LUIS MARTINEZ Page [phone] at 1717 All edits/amendments must be made on the electronic document DICTATION DATE: 08/01/181715 HEALTH INSURANCE SALES AGENT: TUSHAR 08/01/181715 RPT#: [id number] DC DATE: STATUS: ADM IN [facility] [address] [place] [address] END OF REPORT
--- NOTE | 2018-08-01 17:25 | MORECARE ---
CASE MANAGEMENT DISCHARGE SUMMARY PATIENT: JOSÉ LUIS MARTINEZ UNIT: [id number] ADM DATE: 07/30/18 AGE: 77 : 38 SEX: M ROOM/BED: D.1204 AUTHOR: ERNESTODOC PHYSICIAN: REFERRING PHYSICIAN: SURI MUELLER MD DATE OF SERVICE: 08/01/18 Discharge Plan Patient Name: JOSÉ LUIS MARTINEZ Facility: [facility]:[place] : 1940 Planned Disposition: Anticipated Discharge Date: Discharge Date: Expected LOS: Initial Reviewer: [email or web address] Initial Review Date: 08/01/2018 Generated: 08/01/18 6:25 pm Comments DCP- Discharge Planning Updated by [id number]: Linda Engel on 08/01/18 4:[address] Patient Name: JOSÉ LUIS MARTINEZ Admission Status: ER Accout number: [id number] Admission Date: 07-30-2018 : 1940 Admission Diagnosis: Attending: SURI MUELLER Current LOS: 2 Anticipated DC Date: Planned Disposition: Primary Insurance: MEDICARE A & B Discharge Planning Comments: CM MET WITH PATIENT AND HIS ABOUT DC PLANNING/NEEDS. DENIES NEEDS AT THIS TIME. IMM SERVED. CM WILL FOLLOW AND ASSIST NEEDED WITH DC PLANNING/NEEDS. Certified Registered Nurse Anesthetist: Linda Engel DCPIA - Discharge Planning Initial Assessment Updated by [id number]: Linda Engel on 08/01/18 5:23 pm * Is the patient Alert and Oriented? Yes * PCP SING * [facility] * Preadmission Environment Home with Family * ADLs Independent * Equipment None * List name and contact numbers for known caregivers / representatives who currently or will assist patient after discharge: PHANI SMITH, * Community resources currently utilized None * Additional services required to return to the preadmission environment? No * Can the patient safely return to the preadmission environment? Yes * Has this patient been hospitalized within the prior 30 days at any hospital? No Coverage Notice Reviewer: [id number] - Linda Engel Notice Issued Date-Time: 08/01/2018 17:10 Notice Type: IM Discharge Notice Notice Delivered To: Family Member Relationship to Patient: Spouse Seismic Interpreter Name: SARAH Delivery Method: HAND - Hand Delivered Nina Days: Prior Verbal Notification: Recipient Understood Notice: Yes Recipient Signature: Yes Med Rec Note Co-signed by Attending: Coverage Notice Comment: Last DP export: 08/01/18 4:17 p Patient Name: JOSÉ LUIS MARTINEZ Page [id number] at 1725 All edits/amendments must be made on the electronic document DICTATION DATE: 08/01/181723 MULTIPLE SCLEROSIS NURSE: TUSHAR 08/01/181723 RPT#: [id number] DC DATE: STATUS: ADM IN [facility] [address] [place] [address] END OF REPORT
--- NOTE | 2018-08-01 17:29 | NUR ---
PT STILL DOESNT REALLY HAVE AN APPETITE AND NOT WANTING TO EAT DINNER HE STATES HE WILL TRY A STRAWBERRY SHAKE SO I ORDERED HIM ONE. PT SITTING UP ON EDGE OF BED RESTING QUIETLY WITH AT BEDSIDE. PT DENIES ANY CURRENT PAIN OR NEEDS. CL IN REACH. WILL CTM.
--- NOTE | 2018-08-01 19:30 | NUR ---
RESUMING CARE. PT SITTNG UP ON SIDE OF BED USING THE URINAL A&O , BREATH SOUNDS EVEN, IV IN RT AC SL,NO C/O PAIN OR DISTRESS AT THIS TIME CALL IN REACH WILL CONT TO MONITOR AT BEDSIDE
[2018-08-01 20:00] VITALS: BP 162/80
[2018-08-02] VITALS: BP 163/93
[2018-08-02 04:00] VITALS: BP 151/85
--- NOTE | 2018-08-02 04:17 | NUR ---
I have reviewed this patient and I concur with the Shift Assessment completed by the Licensed Practical Nurse today this shift.
[2018-08-02 05:55] LABS: BASOPHILS 0 % (0-2); EOSINOPHILS 0.2 % (0-7); HEMOGLOBIN 11.1 g/dL (13.5-17.5); IMMATURE GRANULOCYTES 0.2 % (0-5); LYMPHOCYTES 8.4 % (15-50); MCH 30.3 pg (26.0-34.0); MCHC 34.7 g/dL (31.0-37.0); MCV 87.4 fL (80.0-100.0); MEAN PLATELET VOLUME 9.7 fL (7.4-10.4); MONOCYTES 13.1 % (2-11); NEUTROPHILS 78.1 % (40-80); PLATELET COUNT 229 10x3/uL (130-400); RBC 3.66 10x6/uL (4.20-6.10); RDW 13.6 % (11.5-14.5); WBC 8.5 10x3/uL (4.8-10.8)
[2018-08-02 06:08] LABS: CALC OSMOLALITY 256 mosm/kg (275-300); CALCIUM 7.8 mg/dL (8.5-10.1); CARBON DIOXIDE 25.8 mmol/L (21.0-32.0); CHLORIDE - SERUM 92 mmol/L (98-107); CREATININE - SERUM 0.9 mg/dL (0.6-1.3); GLUCOSE 134 mg/dL (74-106); SODIUM 127 mmol/L (136-145); UREA NITROGEN 13 mg/dL (7-18); eGFR NON AFRICAN AMERICAN 86 mL/min (90-120)
[2018-08-02 06:10] LABS: POTASSIUM - SERUM 3.4 mmol/L (3.5-5.1)
[2018-08-02 08:03] VITALS: BP 175/85
--- NOTE | 2018-08-02 08:15 | NUR ---
AM ROUNDS COMPLETED. INTRODUCED MYSELF TO PT PRIMARY RN FOR TODAYS SHIFT. PT IS A&O SITTING UP IN BED RESTING QUIETLY. SHIFT ASSESSMENT COMPLETED. PTS LUNGS STILL VERY CONGESTED WITH WHEEZING THROUGHOUT ALL LOBES. PT STATES HE IS COUGHING UP THICK WHITE PHLEGM WHEN HE CAN. PT STATES HE DIDNT HAVE A GOOD NIGHT AND IS JUST WORN OUT AND TIRED OF FEELING SO ILL. MORNING MEDICATIONS GIVEN ORDERED AND PT SWALLOWED WITHOUT ANY DIFFICULTIES NOTED. PTS POTASSIUM SLIGHTLY LOW, PROVIDED WITH ORAL REPLACEMENT PER ELECTROLYTE PROTOCOL. PT DENIES ANY CURRENT NEEDS AT THIS TIME, AT BEDSIDE, CL IN REACH, BED IN LOWEST, SIDE RAILS X2. WILL CTM.
[2018-08-02 12:00] VITALS: BP 157/66
--- NOTE | 2018-08-02 13:35 | NUR ---
Nutrition follow-up: Diet: Regular PO intake ~50% of meals; pt reports poor appetite Labs reviewed WT: 191# +BM Pt may have wayne hole soon Will continue to provide food choices and honor food preferences. RDN will order [place] Ensure BID. Following.
--- NOTE | 2018-08-02 15:31 | NUR ---
AT BEDSIDE ASSISTING PT WITH BED BATH. PT SITTING UP ON EDGE OF BED DENIES ANY CURRENT PAIN OR NEEDS. CL IN REACH. WILL CTM.
[2018-08-02 16:16] VITALS: BP 152/84
--- NOTE | 2018-08-02 18:00 | NUR ---
PTS R.AC PIV INFILTRATED. D/C WITH CATHETER TIP FULLY INTACT. NEW 20 GUAGE PIV INSERTED TO L.FA X1 STICK. PT SITTING UP IN BED STILL BARELY ANY APPETITE. DID ORDER PT A CHOCOLATE SHAKE SO HE WOULD DRINK SOMETHING PT WILL TRY TO DRINK SOME. AT BEDSIDE NO CURRENT NEEDS. WILL CTM.
--- NOTE | 2018-08-02 20:30 | NUR ---
AWAKE,ALERT.NO DISTRESS NOTED.SL TO LFA WITHOUT REDNESS OR EDEMA NOTED. RESP UNLABORED. O2 @ 2L PER NC ON,. CL IN REACH. AT BEDSIDE.
--- NOTE | 2018-08-02 20:39 | NUR ---
AWAKE,ALERT.NO DISTRESS NOTED. RESP EVEN AND UNALBORED. SL TO LFA WITHOUT REDNESS OR EDMEA NOTED. CL IN REACH. AT BEDSIDE.
[2018-08-02 21:53] VITALS: BP 167/88
--- NOTE | 2018-08-03 02:13 | NUR ---
I have reviewed this patient and I concur with the Shift Assessment completed by the Licensed Practical Nurse today this shift.
[2018-08-03 05:10] VITALS: BP 114/78
[2018-08-03 06:59] LABS: CALC OSMOLALITY 254 mosm/kg (275-300); CHLORIDE - SERUM 94 mmol/L (98-107); CREATININE - SERUM 0.7 mg/dL (0.6-1.3); GLUCOSE 120 mg/dL (74-106); SODIUM 127 mmol/L (136-145); UREA NITROGEN 11 mg/dL (7-18); eGFR NON AFRICAN AMERICAN > 90 mL/min (90-120)
[2018-08-03 07:04] LABS: BASOPHILS 0 % (0-2); EOSINOPHILS 0.4 % (0-7); HEMATOCRIT 33.2 % (42.0-54.0); HEMOGLOBIN 11.4 g/dL (13.5-17.5); IMMATURE GRANULOCYTES 0.4 % (0-5); LYMPHOCYTES 10.5 % (15-50); MCH 30.7 pg (26.0-34.0); MCHC 34.3 g/dL (31.0-37.0); MEAN PLATELET VOLUME 9.5 fL (7.4-10.4); MONOCYTES 13.9 % (2-11); NEUTROPHILS 74.8 % (40-80); PLATELET COUNT 232 10x3/uL (130-400); RBC 3.71 10x6/uL (4.20-6.10); RDW 13.8 % (11.5-14.5); WBC 10.2 10x3/uL (4.8-10.8)
[2018-08-03 07:11] LABS: MCV 89.5 fL (80.0-100.0)
--- NOTE | 2018-08-03 07:45 | NUR ---
MORNING NOTE. AM ROUNDS COMPLETED. INTRODUCED MYSELF TO PT PRIMARY RN FOR TODAYS SHIFT. PT IS A&O SITTING UP IN BED RESTING QUIETLY. SHIFT ASSESSMENT COMPLETED. WILL REVIEW CHART AND MEDICATIONS AND BEGIN PLAN OF CARE. CL IN REACH, BED IN LOWEST, SIDE RAILS X2 AND ELIZABETH PAD IN PLACE. WILL CTM.
--- NOTE | 2018-08-03 09:45 | NUR ---
PT ONLY VOIDING VERY SMALL AMOUNTS AT A TIME. PT URINATED 50CC AND STATES HE FEELS LIKE HE STILL NEEDS TO GO. BLADDER APPEARS DISTENDED. BLADDER SCAN PERFORMED AND REVEALED OVER 600CC OF FLUID. OBTAINEED ORDER FOR LOYD CATHETER R/T RETENTION. 16FR LOYD PLACED USING STERILE TECHNIQUE WITHOUT ANY RESISTANCE OR ISSUES MET. IMMEDIATE FLOW OF URINE DRAINING OFF TO L.SIDE OF BED TO GRAVITY BAG. STAT LOCK SECURED TO L.INNER THIGH. TEACHING PROVIDED AND PT VERBALIZED UNDERSTANDING. AT BEDSIDE NO CURRENT NEEDS.
[2018-08-03 10:28] VITALS: BP 152/80
[2018-08-03 11:33] LABS: APPEARANCE CLEAR (CLEAR); BACTERIA FEW /hpf (NONE SEEN); BILIRUBIN NEGATIVE (NEGATIVE); COLOR YELLOW (YELLOW); EPITHELIAL CELLS RARE /hpf (0-5); GLUCOSE NEGATIVE (NEGATIVE); KETONE NEGATIVE (NEGATIVE); NITRITE NEGATIVE (NEGATIVE); PROTEIN NEGATIVE (NEGATIVE); RED CELLS - URINE OCC /hpf (0-5); UROBILINOGEN NORMAL (NORMAL)
[2018-08-03 11:53] VITALS: BP 154/74
--- NOTE | 2018-08-03 14:57 | EC ---
PATIENT:JOSÉ LUIS MARTINEZ DATE OF SERVICE: 07/30/18 SEX: M MEDICAL RECORD: [id number] DATE OF : [birth year] LOCATION:D. D.120 AGE OF PATIENT: 77 ADMISSION DATE: 07/30/18 REFERRING PHYSICIAN: INTERPRETING PHYSICIAN: JACQUELYN GU MD ECHOCARDIOGRAM REPORT ECHO CHARGES 4 ECHO COMPLETE Date: 07/30/18 CLINICAL DIAGNOSIS: CHF ECHOCARDIOGRAPHIC MEASUREMENTS (adult normal given) AC root (d.<3.7cm) 3.8 cm LV Septum d (<1.2 cm> 1.2 cm Valve Excursion 1.7 cm LV Septum (systole) 1.8 cm Left Atria (s.<4.0cm> 3.4 cm LVPW d(<1.2cm) 1.5 cm RV (d.<2.3cm) 4.1 cm LVPW (sytole) 2.0 cm LV diastole(<5.6CM) 5.1 cm MV E-F(>70mm/sec) cm LV systole 3.4 cm LVOT Diameter 2.1 cm MV exc.(>10mm) cm Est.ejection fraction (50-75%) % DOPPLER: LVIT cm/sec A 92 cm/sec E 60 cm/sec LA cm/sec RVSP 40.2 mmHg LVOT 116 cm/sec AOP1/2T m/s Asc. Ao 137 cm/sec RVOT 74 cm/sec RA cm/sec PA 85 cm/sec AV Gradient Peak 7.5 mmHg AV Mean 4.1 mmHg AV Area 3.3 cm MV Gradient Peak 2.9 mmHg MV Mean 1.5 mmHg MV Area cm COMMENTS: Iv Technician: Buddy BARBOZA Chip Mixing Machine Operator: Alejandro Gu TAPE# PACS Pericardial Effusion N DATE OF SERVICE: 07/30/2018 FINDINGS: 1. Left ventricular chamber size is within normal limits. Left ventricular systolic function is normal. Overall ejection fraction is estimated at 55%. 2. Left atrium, right atrium, and right ventricle chamber sizes are within normal limit. 3. Valvular structures have normal structure and motion. 4. Doppler interrogation reveals mild mitral regurgitation and mild tricuspid regurgitation. No other valvular insufficiency or stenosis. Pulmonary systolic ECHOCARDIOGRAM REPORT [id number] JOSÉ LUIS MARTINEZ pressure is estimated at 40 mmHg. 6. No evidence of pericardial effusion or left ventricular thrombus. TRANSINT:[id number] Voice Confirmation ID: [id number] DOCUMENT ID: [id number] JACQUELYN GU MD at 1457 CC: [id number] DICTATION DATE: 07/30/18 1635 APPLE PICKING SUPERVISOR: 07/30/18 1907 ADM IN [facility] [address] [place] [address]
--- NOTE | 2018-08-03 17:24 | NUR ---
PT STILL FEELING VERY RESTLESS UNABLE TO EAT OR HAVE ANY APPETITE. PT UNABLE TO GET COMFORTABLE AND IS JUST FEELING MISERABLE. I KEEP ADJUSTING HIM IN BED AND ADJUSTING THE AIR UNIT BUT NOTHING SEEMS TO HELP. WAS CONSULTED AND SEEN PT AND DISCUSSED NEW MEDICATIONS AND PLAN OF CARE WITH ME AND PT AND HIS . PT CONSTANTLY THIRSTY BUT UNABLE TO HAVE FREE WATER SO I PROVIDED HIM WITH JUICE BUT HE IS TIRED OF IT BUT AGREES TO TRY A GATORADE SO I ORDERED ONE FROM THE KITCHEN. EMPTIED LOYD BAG OF 1100CC OF YELLOW URINE. NEW ORDER FOR RESPIRATORY SPECIMEN I PROVIDED COLLECTION CUP AND EXPLAINED TO PT AND HE WILL PROVIDE WHEN ABLE. VSS AND PT CURRENTLY NOT WANTING TO WEAR OXYGEN. NO CURRENT NEEDS. WILL CTM.
--- NOTE | 2018-08-03 19:00 | NUR ---
BEDSIDE SHIFT REPORT GIVEN. PT RESTING QUIETLY IN BED. NO FURTHER NEEDS.
--- NOTE | 2018-08-03 19:36 | NUR ---
PT IN BED. AT BEDSIDE. REMOVED TRAY PER REQUEST. PT C/O RESTLESSNESS AND INABILITY TO SLEEP PAGED. RESTORIL ORDERED.
[2018-08-03 20:50] VITALS: BP 136/63
--- NOTE | 2018-08-04 05:22 | NUR ---
I have reviewed this patient and I concur with the Shift Assessment completed by the Licensed Practical Nurse today this shift.
[2018-08-04 05:42] VITALS: BP 141/78
[2018-08-04 06:43] LABS: BASOPHILS 0.1 % (0-2); EOSINOPHILS 0 % (0-7); HEMATOCRIT 33.1 % (42.0-54.0); HEMOGLOBIN 11.5 g/dL (13.5-17.5); IMMATURE GRANULOCYTES 0.4 % (0-5); LYMPHOCYTES 5.3 % (15-50); MCH 30.4 pg (26.0-34.0); MCHC 34.7 g/dL (31.0-37.0); MCV 87.6 fL (80.0-100.0); MEAN PLATELET VOLUME 9.5 fL (7.4-10.4); MONOCYTES 3.1 % (2-11); NEUTROPHILS 91.1 % (40-80); PLATELET COUNT 265 10x3/uL (130-400); RBC 3.78 10x6/uL (4.20-6.10); RDW 13.4 % (11.5-14.5); WBC 11.8 10x3/uL (4.8-10.8)
[2018-08-04 07:03] LABS: CALCIUM 8.1 mg/dL (8.5-10.1); CARBON DIOXIDE 27.2 mmol/L (21.0-32.0); CHLORIDE - SERUM 87 mmol/L (98-107); CREATININE - SERUM 0.8 mg/dL (0.6-1.3); POTASSIUM - SERUM 3.9 mmol/L (3.5-5.1); SODIUM 122 mmol/L (136-145); eGFR NON AFRICAN AMERICAN > 90 mL/min (90-120)
[2018-08-04 07:04] LABS: CALC OSMOLALITY 250 mosm/kg (275-300); GLUCOSE 174 mg/dL (74-106); UREA NITROGEN 14 mg/dL (7-18)
[2018-08-04 09:07] VITALS: BP 158/74
--- NOTE | 2018-08-04 11:27 | NUR ---
PT LAYING IN BED ALERT AND AGITATED. CONFUSED TO TIME. L FOREARM IV WITH NS @ KVO. 2L O2 VIA NC. HARD OF HEARING. BLE +1 PITTING EDEMA. NORMAL SINUS ON TELE. SCABS NOTED TO TOP OF HEAD. LOYD IN PLACE. DROPLET PRECAUTIONS. TOOK MEDS WITHOUT DIFF, SITTING STRAIGHT UP. NO FREE WATER. AT BEDSIDE. BEDFAST. NO FURTHER CONCERNS AT THIS TIME. BED LOWERED AND LOCKED. CL IN REACH. WILL CPOC.
[2018-08-04 13:50] VITALS: BP 119/98
--- NOTE | 2018-08-04 17:01 | NUR ---
PT TO CT VIA BED.
--- NOTE | 2018-08-04 17:07 | NUR ---
PT BACK TO FLOOR FROM CT VIA BED
[2018-08-04 17:35] VITALS: BP 168/84
--- NOTE | 2018-08-04 18:34 | NUR ---
I have reviewed this patient and I concur with the Shift Assessment completed by the Licensed Practical Nurse today this shift.
--- NOTE | 2018-08-04 19:18 | NUR ---
PT IN BED. EVEN AND UNLABORED RESPIRATIONS NOTED AT THIS TIME.
[2018-08-04 19:30] VITALS: BP 161/83
[2018-08-05] VITALS: BP 158/77
--- NOTE | 2018-08-05 01:20 | NUR ---
I have reviewed this patient and I concur with the Shift Assessment completed by the Licensed Practical Nurse today this shift.
[2018-08-05 04:00] VITALS: BP 145/70
[2018-08-05 06:48] LABS: HEMATOCRIT 33.2 % (42.0-54.0); HEMOGLOBIN 11.6 g/dL (13.5-17.5); MCH 30.6 pg (26.0-34.0); MCHC 34.9 g/dL (31.0-37.0); MCV 87.6 fL (80.0-100.0); MEAN PLATELET VOLUME 9.4 fL (7.4-10.4); PLATELET COUNT 297 10x3/uL (130-400); RBC 3.79 10x6/uL (4.20-6.10); RDW 13.4 % (11.5-14.5); WBC 21.2 10x3/uL (4.8-10.8)
[2018-08-05 07:11] LABS: CALC OSMOLALITY 249 mosm/kg (275-300); CALCIUM 8.1 mg/dL (8.5-10.1); CARBON DIOXIDE 30.4 mmol/L (21.0-32.0); CHLORIDE - SERUM 87 mmol/L (98-107); CREATININE - SERUM 0.8 mg/dL (0.6-1.3); GLUCOSE 119 mg/dL (74-106); POTASSIUM - SERUM 4.1 mmol/L (3.5-5.1); SODIUM 122 mmol/L (136-145); UREA NITROGEN 21 mg/dL (7-18); eGFR NON AFRICAN AMERICAN > 90 mL/min (90-120)
--- NOTE | 2018-08-05 07:28 | NUR ---
PT SITTING UP IN BED RESTING. DENIES PAIN AT THIS TIME. IV TO L FA SL. 2L 02 VIA NE. BLE NOTED. LOYD IN PLACE WITH [place] URINE. VERY [place]. NO FURTHE CONCERNS AT THIS TIME. VITALS STABLE. BED LOWERED AND LOCKED. CL IN REACH. WILL CPOC.
[2018-08-05 07:49] LABS: LYMPHOCYTES 3 % (15-50); MONOCYTES 4 % (2-11); NEUTROPHILS 92 % (40-80); PLATELET ESTIMATE NORMAL
[2018-08-05 08:00] VITALS: BP 151/70
--- NOTE | 2018-08-05 10:07 | NUR ---
PT TOOK MEDS WITHOUT DIFFICULTY. DENIES PAIN AT THIS TIME. A/O X 4. BED ALARM ON AND WORKING. SR UP X 3. PT AFRAID OF FALLING OUT OF BED. NO FURTHER CONCERNS AT THIS TIME. BED LOWERED AND LOCKED. CL IN REACH. WILL CPOC.
[2018-08-05 12:00] VITALS: BP 155/72
--- NOTE | 2018-08-05 13:45 | NUR ---
I have reviewed this patient and I concur with the Shift Assessment completed by the Licensed Practical Nurse today this shift.
--- NOTE | 2018-08-05 15:23 | NUR ---
JUICE AND ICE CHIPS GIVEN TO PT. MEDS TAKEN WITHOUT DIFFICULTY. IV TO L FA PATENT, AND SL. NO FURTHER CONERNS AT THIS TIME. BED LWOERED AND LOCKED. CL IN REACH. WILL CPOC.
[2018-08-05 16:22] VITALS: BP 150/86
--- NOTE | 2018-08-05 19:12 | NUR ---
GREETED PATIENT AND INTRODUCED MYSELF HIS NURSE. PATIENT IS SITTING ON SIDE OF BED AND STATES HE HAS BEING FEELING SICK TO HIS STOMACH. WCTM.
[2018-08-05 19:38] VITALS: BP 188/112
--- NOTE | 2018-08-05 23:11 | NUR ---
PATIENT RESTING QUIETLY WITH FAMILY MEMBER AT BEDSIDE. DENIES ANY NEEDS AT THIS TIME. CALL LIGHT IN REACH.
[2018-08-06] VITALS (7 sets, daily range): BP systolic 127–167; BP diastolic 78–98
--- NOTE | 2018-08-06 00:14 | NUR ---
PATIENT AWAKE AND ASKING FOR SOMETHING TO HELP HIM SLEEP.
--- NOTE | 2018-08-06 00:19 | NUR ---
ADMINISTERED PRN RESTIROL FOR SLEEP AID. JUAN PABLO.
--- NOTE | 2018-08-06 03:12 | NUR ---
PATIENT AWAKE LAYING IN BED. FAMILY MEMBER AT BEDSIDE ASLEEP IN CHAIR. PATIENT DENIES ANY NEEDS AT THIS TIME. CALL LIGHT IN REACH.
--- NOTE | 2018-08-06 05:19 | NUR ---
PATIENT AWAKE AND LAYING IN SUPINE POSITION. HOB AT 30 DEGREES. 02 AT 2L IN USE VIA NC. RESPIRATIONS EVEN. FAMILY MEMBER SITTING IN CHAIR AT BEDSIDE. PATIENT DENIES ANY NEEDS AT THIS TIME. CALL LIGHT IN REACH.
[2018-08-06 06:52] LABS: BASOPHILS 0 % (0-2); EOSINOPHILS 0 % (0-7); HEMATOCRIT 34.9 % (42.0-54.0); HEMOGLOBIN 12.1 g/dL (13.5-17.5); IMMATURE GRANULOCYTES 1.3 % (0-5); MCH 30.7 pg (26.0-34.0); MCHC 34.7 g/dL (31.0-37.0); MCV 88.6 fL (80.0-100.0); MEAN PLATELET VOLUME 9.6 fL (7.4-10.4); MONOCYTES 7.7 % (2-11); PLATELET COUNT 297 10x3/uL (130-400); RBC 3.94 10x6/uL (4.20-6.10); RDW 13.6 % (11.5-14.5)
[2018-08-06 07:04] LABS: WBC 15.4 10x3/uL (4.8-10.8)
[2018-08-06 07:17] LABS: ANION GAP 7.7 mmol/L (8-16); CALCIUM 8.2 mg/dL (8.5-10.1); CARBON DIOXIDE 31.7 mmol/L (21.0-32.0); POTASSIUM - SERUM 4.4 mmol/L (3.5-5.1)
[2018-08-06 07:33] LABS: CREATININE - SERUM 1.1 mg/dL (0.6-1.3)
--- NOTE | 2018-08-06 12:58 | NUR ---
Regular diet ordered No recent documenation of po intake Intake varies based on available documentation (0-75%) Observed lunch and pt did not eat much Ensure ordered Pt reports at home he only eats one meal per day. Encouraged Ensure and pt agreed Encouraged good po intake to help pt maintain strength while in the hospital No free water at this time RD following per protocol
--- NOTE | 2018-08-06 21:15 | NUR ---
PM MEDS GIVEN ORDERED. CALL LIGHT IN REACH.
--- NOTE | 2018-08-07 01:46 | NUR ---
REST IN LEFT SIDE, RESP EVEN, NO DISTRESS. CALL LIGHT IN REACH.
[2018-08-07 04:00] VITALS: BP 132/73
--- NOTE | 2018-08-07 06:23 | NUR ---
I have reviewed this patient and I concur with the Shift Assessment completed by the Licensed Practical Nurse today this shift.
[2018-08-07 07:30] LABS: HEMATOCRIT 36.1 % (42.0-54.0); HEMOGLOBIN 12.3 g/dL (13.5-17.5); MCH 30.7 pg (26.0-34.0); MCHC 34.1 g/dL (31.0-37.0); MEAN PLATELET VOLUME 9.6 fL (7.4-10.4); PLATELET COUNT 302 10x3/uL (130-400); RBC 4.01 10x6/uL (4.20-6.10); WBC 18.3 10x3/uL (4.8-10.8)
[2018-08-07 07:31] LABS: IMMUNOGLOBULIN A 155 mg/dL (61-437)
[2018-08-07 07:53] LABS: CALC OSMOLALITY 271 mosm/kg (275-300); CALCIUM 8.3 mg/dL (8.5-10.1); CARBON DIOXIDE 32.2 mmol/L (21.0-32.0); CHLORIDE - SERUM 95 mmol/L (98-107); CREATININE - SERUM 0.9 mg/dL (0.6-1.3); GLUCOSE 126 mg/dL (74-106); POTASSIUM - SERUM 4.2 mmol/L (3.5-5.1); SODIUM 131 mmol/L (136-145); UREA NITROGEN 32 mg/dL (7-18); eGFR NON AFRICAN AMERICAN 86 mL/min (90-120)
[2018-08-07 08:01] LABS: LYMPHOCYTES 6 % (15-50); MONOCYTES 14 % (2-11); NEUTROPHILS 77 % (40-80)
[2018-08-07 08:02] LABS: PLATELET ESTIMATE NORMAL
[2018-08-07 09:12] VITALS: BP 159/90
--- NOTE | 2018-08-07 13:20 | NUR ---
Rehab Note- Acute Inpatient Rehab prescreen order received. The patient has a pending PT Eval, will await to see the patient's functional mobility at this time. Will follow at this time. Thank you for this referral! Caridad Stern RN CLinical Liaison, [facility] Rehab
[2018-08-07 17:18] VITALS: BP 145/90
[2018-08-07 20:00] VITALS: BP 129/84
--- NOTE | 2018-08-07 20:10 | NUR ---
LYING IN BED. ALERT AND ORIENTED X4. RESP IRREG, NONLABORED. O2 @ 2L/NC. BBS COARSE WITH INSP/EXP WHEEZES. NONPROD COUGH NOTED. TELEMETRY SHOWS ST WITH PACS. LOYD CATH PATENT AND DRAINING YELLOW URINE. BRUISES NOTED TO BUE. 1+ EDEMA NOTED TO BLE. PEDAL PULSES WEAK. SALINE LOCK NOTED TO LT FOREARM. ELIZABETH ALARM ON FOR PT SAFETY. SR ELEVATED X2. CL IN REACH.
[2018-08-08] VITALS: BP 153/99
--- NOTE | 2018-08-08 02:55 | NUR ---
HASNT SLEPT MUCH TONIGHT. STATES HE HAS INSOMNIA.
[2018-08-08 04:30] VITALS: BP 153/75
[2018-08-08 07:11] LABS: BASOPHILS 0.1 % (0-2); EOSINOPHILS 0 % (0-7); HEMATOCRIT 35.8 % (42.0-54.0); IMMATURE GRANULOCYTES 2.3 % (0-5); MCH 30.5 pg (26.0-34.0); MCHC 33.5 g/dL (31.0-37.0); MCV 90.9 fL (80.0-100.0); MEAN PLATELET VOLUME 9.4 fL (7.4-10.4); MONOCYTES 11.6 % (2-11); PLATELET COUNT 299 10x3/uL (130-400); RBC 3.94 10x6/uL (4.20-6.10); RDW 14.2 % (11.5-14.5); WBC 19.8 10x3/uL (4.8-10.8)
[2018-08-08 07:27] LABS: CALC OSMOLALITY 276 mosm/kg (275-300); CALCIUM 8.3 mg/dL (8.5-10.1); CARBON DIOXIDE 33.4 mmol/L (21.0-32.0); CHLORIDE - SERUM 97 mmol/L (98-107); CREATININE - SERUM 0.9 mg/dL (0.6-1.3); GLUCOSE 117 mg/dL (74-106); SODIUM 134 mmol/L (136-145); UREA NITROGEN 35 mg/dL (7-18); eGFR NON AFRICAN AMERICAN 86 mL/min (90-120)
--- NOTE | 2018-08-08 07:30 | NUR ---
INITIAL ROUNDING ON THE PATIENT,CAREGIVERS INTRODUCED, HE IS RESTING, AWAKE, SUPINE IN THE BED. BREAKFAST ON BEDSIDE TABLE, PATIENT STATES HE IS GOING TO SIT UP ON THE SIDE OF THE BED TO EAT. HE DENIES PAIN, NO SOB NOTED.
[2018-08-08 08:25] VITALS: BP 145/79
--- NOTE | 2018-08-08 10:17 | MORECARE ---
CASE MANAGEMENT DISCHARGE SUMMARY PATIENT: JOSÉ LUIS MARTINEZ UNIT: [id number] ADM DATE: 07/30/18 AGE: 77 : 38 SEX: M ROOM/BED: D.1204 AUTHOR: ERNESTODOC PHYSICIAN: REFERRING PHYSICIAN: SURI MUELLER MD DATE OF SERVICE: 08/08/18 Discharge Plan Patient Name: JOSÉ LUIS MARTINEZ Facility: [facility]:[place] : 1940 Planned Disposition: Anticipated Discharge Date: Discharge Date: Expected LOS: Initial Reviewer: [id number] Initial Review Date: 08/01/2018 Generated: 08/08/18 11:17 am Comments DCP- Discharge Planning Updated by [id number]: Linda Engel on 08/01/18 4:[address] Patient Name: JOSÉ LUIS MARTINEZ Admission Status: ER Accout number: [id number] Admission Date: 07-30-2018 : 1940 Admission Diagnosis: Attending: SURI MUELLER Current LOS: 2 Anticipated DC Date: Planned Disposition: Primary Insurance: MEDICARE A & B Discharge Planning Comments: CM MET WITH PATIENT AND HIS ABOUT DC PLANNING/NEEDS. DENIES NEEDS AT THIS TIME. IMM SERVED. CM WILL FOLLOW AND ASSIST NEEDED WITH DC PLANNING/NEEDS. Facilities Maintenance Supervisor: Linda Engel DCPIA - Discharge Planning Initial Assessment Updated by [id number]: Linda Engel on 08/01/18 5:23 pm * Is the patient Alert and Oriented? Yes * PCP SING * [facility] * Preadmission Environment Home with Family * ADLs Independent * Equipment None * List name and contact numbers for known caregivers / representatives who currently or will assist patient after discharge: PHANI SMITH, * Community resources currently utilized None * Additional services required to return to the preadmission environment? No * Can the patient safely return to the preadmission environment? Yes * Has this patient been hospitalized within the prior 30 days at any hospital? No Coverage Notice Reviewer: [id number] - Linda Engel Notice Issued Date-Time: 08/01/2018 17:10 Notice Type: IM Discharge Notice Notice Delivered To: Family Member Relationship to Patient: Spouse Fire Eater Name: SARAH Delivery Method: HAND - Hand Delivered Nina Days: Prior Verbal Notification: Recipient Understood Notice: Yes Recipient Signature: Yes Med Rec Note Co-signed by Attending: Coverage Notice Comment: Reviewer: [id number] Engel Notice Issued Date-Time: 08/08/2018 10:08 Notice Type: IM Discharge Notice Notice Delivered To: Patient Relationship to Patient: Fire Eater Name: Delivery Method: HAND - Hand Delivered Nina Days: Prior Verbal Notification: Recipient Understood Notice: Yes Recipient Signature: Yes Med Rec Note Co-signed by Attending: Coverage Notice Comment: Reviewer: [id number] Engel Notice Issued Date-Time: 08/08/2018 10:08 Notice Type: Patient Choice Letter Notice Delivered To: Patient Relationship to Patient: Fire Eater Name: Delivery Method: HAND - Hand Delivered Nina Days: Prior Verbal Notification: Recipient Understood Notice: Yes Recipient Signature: Yes Med Rec Note Co-signed by Attending: Coverage Notice Comment: [facility] Last DP export: 08/01/18 4:25 p Patient Name: JOSÉ LUIS MARTINEZ Page [id number] at 1017 All edits/amendments must be made on the electronic document DICTATION DATE: 08/08/18 1017 SUPERVISOR CD AREA: TUSHAR 08/08/18 1017 RPT#: [id number] DC DATE: STATUS: ADM IN [facility] [address] [place] [address] END OF REPORT
--- NOTE | 2018-08-08 10:53 | MORECARE ---
CASE MANAGEMENT DISCHARGE SUMMARY PATIENT: JOSÉ LUIS MARTINEZ UNIT: [id number] ADM DATE: 07/30/18 AGE: 77 : 38 SEX: M ROOM/BED: D.1204 AUTHOR: ERNESTODOC PHYSICIAN: REFERRING PHYSICIAN: SURI MUELLER MD DATE OF SERVICE: 08/08/18 Discharge Plan Patient Name: JOSÉ LUIS MARTINEZ Facility: [facility]:[place] : 1940 Planned Disposition: Inpatient Rehab Anticipated Discharge Date: Discharge Date: Expected LOS: Initial Reviewer: [email or web address] Initial Review Date: 08/01/2018 Generated: 08/08/18 11:52 am Comments DCP- Discharge Planning Updated by [email or web address]: Linda Engel on 08/01/18 4:[address] Patient Name: JOSÉ LUIS MARTINEZ Admission Status: ER Accout number: [id number] Admission Date: 07-30-2018 : 1940 Admission Diagnosis: Attending: SURI MUELLER Current LOS: 2 Anticipated DC Date: Planned Disposition: Primary Insurance: MEDICARE A & B Discharge Planning Comments: CM MET WITH PATIENT AND HIS ABOUT DC PLANNING/NEEDS. DENIES NEEDS AT THIS TIME. IMM SERVED. CM WILL FOLLOW AND ASSIST NEEDED WITH DC PLANNING/NEEDS. Instructional Systems Specialist: Linda Engel DCPIA - Discharge Planning Initial Assessment Updated by [id number]: Linda Engel on 08/01/18 5:23 pm * Is the patient Alert and Oriented? Yes * PCP SING * [facility] * Preadmission Environment Home with Family * ADLs Independent * Equipment None * List name and contact numbers for known caregivers / representatives who currently or will assist patient after discharge: PHANI SMITH, * Community resources currently utilized None * Additional services required to return to the preadmission environment? No * Can the patient safely return to the preadmission environment? Yes * Has this patient been hospitalized within the prior 30 days at any hospital? No Coverage Notice Reviewer: [id number] - Linda Engel Notice Issued Date-Time: 08/01/2018 17:10 Notice Type: IM Discharge Notice Notice Delivered To: Family Member Relationship to Patient: Spouse Director Oracle Name: SARAH Delivery Method: HAND - Hand Delivered Nina Days: Prior Verbal Notification: Recipient Understood Notice: Yes Recipient Signature: Yes Med Rec Note Co-signed by Attending: Coverage Notice Comment: Reviewer: [id number] Engel Notice Issued Date-Time: 08/08/2018 10:08 Notice Type: IM Discharge Notice Notice Delivered To: Patient Relationship to Patient: Director Oracle Name: Delivery Method: HAND - Hand Delivered Nina Days: Prior Verbal Notification: Recipient Understood Notice: Yes Recipient Signature: Yes Med Rec Note Co-signed by Attending: Coverage Notice Comment: Reviewer: [id number] Engel Notice Issued Date-Time: 08/08/2018 10:08 Notice Type: Patient Choice Letter Notice Delivered To: Patient Relationship to Patient: Director Oracle Name: Delivery Method: HAND - Hand Delivered Nina Days: Prior Verbal Notification: Recipient Understood Notice: Yes Recipient Signature: Yes Med Rec Note Co-signed by Attending: Coverage Notice Comment: C[facility] IV [facility] Last DP export: 08/08/18 9:17 a Patient Name: JOSÉ LUIS MARTINEZ Page [phone] at 1053 All edits/amendments must be made on the electronic document DICTATION DATE: 08/08/18 1052 CLAY HOUSE WORKER: TUSHAR 08/08/18 1052 RPT#: [id number] DC DATE: STATUS: ADM IN [facility] [address] [place] [address] END OF REPORT
[2018-08-08 12:08] VITALS: BP 120/82
[2018-08-08 16:45] VITALS: BP 142/56
[2018-08-08 20:00] VITALS: BP 126/88
[2018-08-09] VITALS: BP 160/90
--- NOTE | 2018-08-09 00:07 | NUR ---
2015) REC'D. CHGE OF SHIFT.IN BED REPOSITIONED IN BED PER REQUEST.STATES DON'T WANT THAT CATH TUBING ACROSS MY LEG.INSTRUCTED CAN'T PUT IT UNDER LEG MAY CUT OFF URINE FLOW.WILL CONTINUE TO MONITOR FOR ANY CHGES. AND FOLLOW CURRENT PLAN OF CARE.
--- NOTE | 2018-08-09 02:50 | NUR ---
I have reviewed this patient and I concur with the Shift Assessment completed by the Licensed Practical Nurse today this shift.
[2018-08-09 04:00] VITALS: BP 166/83
--- NOTE | 2018-08-09 07:09 | NUR ---
INITIAL ROUNDING, PATIENT AWAKE AND RESTING IN BED. HE DENIES PAIN. LOYD TO BSG, O2 VIA NC IN PLACE, ELIZABETH ALARM ON AND AUDIABLE.
[2018-08-09 07:39] LABS: BASOPHILS 0.1 % (0-2); EOSINOPHILS 0.1 % (0-7); HEMOGLOBIN 12.9 g/dL (13.5-17.5); IMMATURE GRANULOCYTES 4.1 % (0-5); LYMPHOCYTES 11.5 % (15-50); MCH 31.1 pg (26.0-34.0); MCHC 33.9 g/dL (31.0-37.0); MCV 91.6 fL (80.0-100.0); MEAN PLATELET VOLUME 9.6 fL (7.4-10.4); MONOCYTES 12.3 % (2-11); NEUTROPHILS 71.9 % (40-80); PLATELET COUNT 292 10x3/uL (130-400); RBC 4.15 10x6/uL (4.20-6.10); RDW 14.5 % (11.5-14.5); WBC 17.5 10x3/uL (4.8-10.8)
[2018-08-09 07:50] VITALS: BP 160/78
[2018-08-09 07:54] LABS: CALC OSMOLALITY 284 mosm/kg (275-300); CALCIUM 8.3 mg/dL (8.5-10.1); CARBON DIOXIDE 33.6 mmol/L (21.0-32.0); CHLORIDE - SERUM 99 mmol/L (98-107); GLUCOSE 89 mg/dL (74-106); POTASSIUM - SERUM 3.4 mmol/L (3.5-5.1); SODIUM 139 mmol/L (136-145); UREA NITROGEN 36 mg/dL (7-18); eGFR NON AFRICAN AMERICAN 76 mL/min (90-120)
--- NOTE | 2018-08-09 11:22 | MORECARE ---
CASE MANAGEMENT DISCHARGE SUMMARY PATIENT: JOSÉ LUIS MARTINEZ UNIT: [id number] ADM DATE: 07/30/18 AGE: 77 : 38 SEX: M ROOM/BED: D.1204 AUTHOR: ERNESTODOC PHYSICIAN: REFERRING PHYSICIAN: SURI MUELLER MD DATE OF SERVICE: 08/09/18 Discharge Plan Patient Name: JOSÉ LUIS MARTINEZ Facility: [facility]:[place] : 1940 Planned Disposition: Inpatient Rehab Anticipated Discharge Date: Discharge Date: Expected LOS: Initial Reviewer: [id number] Initial Review Date: 08/01/2018 Generated: 08/09/18 12:22 pm Comments DCP- Discharge Planning Updated by [id number]: Linda Engel on 08/09/18 10:[address] Patient Name: JOSÉ LUIS MARTINEZ Admission Status: ER Accout number: [id number] Admission Date: 07-30-2018 : 1940 Admission Diagnosis:SHORTNESS OF BREATH Attending: SURI MUELLER Current LOS: 10 Anticipated DC Date: Planned Disposition: Inpatient Rehab Primary Insurance: MEDICARE A & B Discharge Planning Comments: CM SPOKE WITH DR. GREEN AND STATES PATIENT IS MEDICALLY STABLE FOR INPT REHAB. SPOKE WITH STELLA IN INPT REHAB AND WAITING JUNIOR ORACLE DBA BACK TO SEE IF CAN ACCEPT PATIENT. CM TO FOLLOW AND ASSIST. City Detective: Linda Engel DCP- Discharge Planning Updated by [email or web address]: Linda Engel on 08/01/18 4:[address] Patient Name: JOSÉ LUIS MARTINEZ Admission Status: ER Accout number: [id number] Admission Date: 07-30-2018 : 1940 Admission Diagnosis: Attending: SURI MUELLER Current LOS: 2 Anticipated DC Date: Planned Disposition: Primary Insurance: MEDICARE A & B Discharge Planning Comments: CM MET WITH PATIENT AND HIS ABOUT DC PLANNING/NEEDS. DENIES NEEDS AT THIS TIME. IMM SERVED. CM WILL FOLLOW AND ASSIST NEEDED WITH DC PLANNING/NEEDS. City Detective: Linda Engel DCPIA - Discharge Planning Initial Assessment Updated by [email or web address]: Linda Engel on 08/01/18 5:23 pm * Is the patient Alert and Oriented? Yes * PCP [facility] * [facility] * Preadmission Environment Home with Family * ADLs Independent * Equipment None * List name and contact numbers for known caregivers / representatives who currently or will assist patient after discharge: PHANI SMITH, * Community resources currently utilized None * Additional services required to return to the preadmission environment? No * Can the patient safely return to the preadmission environment? Yes * Has this patient been hospitalized within the prior 30 days at any hospital? No Coverage Notice Reviewer: VELMA Engel Notice Issued Date-Time: 08/01/2018 17:10 Notice Type: IM Discharge Notice Notice Delivered To: Family Member Relationship to Patient: Spouse Chemical Project Engineer Name: SARAH Delivery Method: HAND - Hand Delivered Nina Days: Prior Verbal Notification: Recipient Understood Notice: Yes Recipient Signature: Yes Med Rec Note Co-signed by Attending: Coverage Notice Comment: Reviewer: VELMA Engel Notice Issued Date-Time: 08/08/2018 10:08 Notice Type: IM Discharge Notice Notice Delivered To: Patient Relationship to Patient: Chemical Project Engineer Name: Delivery Method: HAND - Hand Delivered Nina Days: Prior Verbal Notification: Recipient Understood Notice: Yes Recipient Signature: Yes Med Rec Note Co-signed by Attending: Coverage Notice Comment: Reviewer: VELMA Engel Notice Issued Date-Time: 08/08/2018 10:08 Notice Type: Patient Choice Letter Notice Delivered To: Patient Relationship to Patient: Chemical Project Engineer Name: Delivery Method: HAND - Hand Delivered Nina Days: Prior Verbal Notification: Recipient Understood Notice: Yes Recipient Signature: Yes Med Rec Note Co-signed by Attending: Coverage Notice Comment: [facility] Last DP export: 08/08/18 9:52 a Patient Name: JOSÉ LUIS MARTINEZ Page [phone] at 1122 All edits/amendments must be made on the electronic document DICTATION DATE: 08/09/181121 CEMENT CUTTER: TUSHAR 08/09/181121 RPT#: [id number] DC DATE: STATUS: ADM IN [facility] [address] [place] [address] END OF REPORT
[2018-08-09 12:40] VITALS: BP 113/63
[2018-08-09] MEDS ORDERED: MEDROL DOSE PACK4 MG PO (12:42)
[2018-08-09] MEDS ORDERED: ALBUTEROL2.5 MG/3 M INH (14:03)
[2018-08-09] MEDS ORDERED: DALIRESP500 MCG PO (14:03)
[2018-08-09] MEDS ORDERED: THERMOTABS 1 GM1 GM PO (14:03)
[2018-08-09] MEDS ORDERED: FLORAJEN3 CAPS460 MG PO (14:03)
[2018-08-09] MEDS ORDERED: BROVANA15 MCG/2 M INH (14:03)
[2018-08-09] MEDS ORDERED: MUCINEX DM ER1 EAC1 PO (14:03)
[2018-08-09] MEDS ORDERED: PULMICORT0.5 MG/21 UPD (14:03)
[2018-08-09] MEDS ORDERED: FLOMAX0.4 MG PO (14:03)
[2018-08-09] MEDS ORDERED: FLUTICASONE PRO16 GM NASAL (14:03)
[2018-08-09] MEDS ORDERED: Tessalon Perle PO (14:03)
[2018-08-09] MEDS ORDERED: SINGULAIR10 MG PO (14:03)
[2018-08-09] MEDS ORDERED: IPRAT-ALBUT 0.5-3 ML UPD (14:03)
--- NOTE | 2018-08-09 14:10 | MORECARE ---
CASE MANAGEMENT DISCHARGE SUMMARY PATIENT: JOSÉ LUIS MARTINEZ UNIT: [id number] ADM DATE: 07/30/18 AGE: 77 : 38 SEX: M ROOM/BED: D.1204 AUTHOR: ERNESTODOC PHYSICIAN: REFERRING PHYSICIAN: SURI MUELLER MD DATE OF SERVICE: 08/09/18 Discharge Plan Patient Name: JOSÉ LUIS MARTINEZ Facility: [facility]:[place] : 1940 Planned Disposition: Inpatient Rehab Anticipated Discharge Date: 08/09/18 Discharge Date: Expected LOS: 10 Initial Reviewer: [id number] Initial Review Date: 08/01/2018 Generated: 08/09/18 3:10 pm Comments DCP- Discharge Planning Updated by [email or web address]: Linda Engel on 08/09/18 10:[address] Patient Name: JOSÉ LUIS MARTINEZ Admission Status: ER Accout number: [id number] Admission Date: 07-30-2018 : 1940 Admission Diagnosis:SHORTNESS OF BREATH Attending: SURI MUELLER Current LOS: 10 Anticipated DC Date: Planned Disposition: Inpatient Rehab Primary Insurance: MEDICARE A & B Discharge Planning Comments: CM SPOKE WITH DR. GREEN AND STATES PATIENT IS MEDICALLY STABLE FOR INPT REHAB. SPOKE WITH STELLA IN INPT REHAB AND WAITING VAN OWNER OPERATOR BACK TO SEE IF CAN ACCEPT PATIENT. CM TO FOLLOW AND ASSIST. Cigarette Packing Machine Operator: Linda Engel DCP- Discharge Planning Updated by [email or web address]: Linda Engel on 08/01/18 4:[address] Patient Name: JOSÉ LUIS MARTINEZ Admission Status: ER Accout number: [id number] Admission Date: 07-30-2018 : 1940 Admission Diagnosis: Attending: SURI MUELLER Current LOS: 2 Anticipated DC Date: Planned Disposition: Primary Insurance: MEDICARE A & B Discharge Planning Comments: CM MET WITH PATIENT AND HIS ABOUT DC PLANNING/NEEDS. DENIES NEEDS AT THIS TIME. IMM SERVED. CM WILL FOLLOW AND ASSIST NEEDED WITH DC PLANNING/NEEDS. Cigarette Packing Machine Operator: Linda Engel DCPIA - Discharge Planning Initial Assessment Updated by [id number]: Linda Engel on 08/01/18 5:23 pm * Is the patient Alert and Oriented? Yes * PCP SING * [facility] * Preadmission Environment Home with Family * ADLs Independent * Equipment None * List name and contact numbers for known caregivers / representatives who currently or will assist patient after discharge: PHANI SMITH, * Community resources currently utilized None * Additional services required to return to the preadmission environment? No * Can the patient safely return to the preadmission environment? Yes * Has this patient been hospitalized within the prior 30 days at any hospital? No Coverage Notice Reviewer: [id number] Engel Notice Issued Date-Time: 08/01/2018 17:10 Notice Type: IM Discharge Notice Notice Delivered To: Family Member Relationship to Patient: Spouse Speech Correction Consultant Name: SARAH Delivery Method: HAND - Hand Delivered Nina Days: Prior Verbal Notification: Recipient Understood Notice: Yes Recipient Signature: Yes Med Rec Note Co-signed by Attending: Coverage Notice Comment: Reviewer: VELMA Engel Notice Issued Date-Time: 08/08/2018 10:08 Notice Type: IM Discharge Notice Notice Delivered To: Patient Relationship to Patient: Speech Correction Consultant Name: Delivery Method: HAND - Hand Delivered Nina Days: Prior Verbal Notification: Recipient Understood Notice: Yes Recipient Signature: Yes Med Rec Note Co-signed by Attending: Coverage Notice Comment: Reviewer: VELMA Engel Notice Issued Date-Time: 08/08/2018 10:08 Notice Type: Patient Choice Letter Notice Delivered To: Patient Relationship to Patient: Speech Correction Consultant Name: Delivery Method: HAND - Hand Delivered Nina Days: Prior Verbal Notification: Recipient Understood Notice: Yes Recipient Signature: Yes Med Rec Note Co-signed by Attending: Coverage Notice Comment: [facility] Last DP export: 08/09/18 10:22 a Patient Name: JOSÉ LUIS MARTINEZ Page [phone] at 1410 All edits/amendments must be made on the electronic document DICTATION DATE: 08/09/18 141 PRESS TENDER SMOKE SIGNAL: TUSHAR 08/09/18 141 RPT#: [id number] DC DATE: STATUS: ADM IN [facility] [address] [place] [address] END OF REPORT
--- NOTE | 2018-08-09 14:19 | MORECARE ---
CASE MANAGEMENT DISCHARGE SUMMARY PATIENT: JOSÉ LUIS MARTINEZ UNIT: [id number] ADM DATE: 07/30/18 AGE: 77 : 38 SEX: M ROOM/BED: D.1204 AUTHOR: ERNESTODOC PHYSICIAN: REFERRING PHYSICIAN: SURI MUELLER MD DATE OF SERVICE: 08/09/18 Discharge Plan Patient Name: JOSÉ LUIS MARTINEZ Facility: [facility]:[place] : 1940 Planned Disposition: Inpatient Rehab Anticipated Discharge Date: 08/09/18 Discharge Date: Expected LOS: 10 Initial Reviewer: [id number] Initial Review Date: 08/01/2018 Generated: 08/09/18 3:19 pm Comments DCP- Discharge Planning Updated by [email or web address]: Linda Engel on 08/09/18 1:[address] Patient Name: JOSÉ LUIS MARTINEZ Encounter No: [id number] : 1940 Primary Insurance: MEDICARE A & B Anticipated DC Date: 08-09-2018 Planned Disposition: Inpatient Rehab External Planned Provider: : DCP follow-up note: Patient and family in agreement with discharge plan. No changes to plan. Case management will follow and assist as needed. Linda Engel DCP- Discharge Planning Updated by [id number]: Linda Engel on 08/09/18 10:[address] Patient Name: JOSÉ LUIS MARTINEZ Admission Status: ER Accout number: [id number] Admission Date: 07-30-2018 : 1940 Admission Diagnosis:SHORTNESS OF BREATH Attending: SURI MUELLER Current LOS: 10 Anticipated DC Date: Planned Disposition: Inpatient Rehab Primary Insurance: MEDICARE A & B Discharge Planning Comments: CM SPOKE WITH DR. GREEN AND STATES PATIENT IS MEDICALLY STABLE FOR INPT REHAB. SPOKE WITH STELLA IN INPT REHAB AND WAITING MANAGER PIPELINE BACK TO SEE IF CAN ACCEPT PATIENT. CM TO FOLLOW AND ASSIST. Microbiology Coordinator: Linda Engel DCP- Discharge Planning Updated by [id number]: Linda Engel on 08/01/18 4:[address] Patient Name: JOSÉ LUIS MARTINEZ Admission Status: ER Accout number: [id number] Admission Date: 07-30-2018 : 1940 Admission Diagnosis: Attending: SURI MUELLER Current LOS: 2 Anticipated DC Date: Planned Disposition: Primary Insurance: MEDICARE A & B Discharge Planning Comments: CM MET WITH PATIENT AND HIS ABOUT DC PLANNING/NEEDS. DENIES NEEDS AT THIS TIME. IMM SERVED. CM WILL FOLLOW AND ASSIST NEEDED WITH DC PLANNING/NEEDS. Microbiology Coordinator: Linda Engel DCPIA - Discharge Planning Initial Assessment Updated by [email or web address]: Linda Engel on 08/01/18 5:23 pm * Is the patient Alert and Oriented? Yes * PCP SING * [facility] * Preadmission Environment Home with Family * ADLs Independent * Equipment None * List name and contact numbers for known caregivers / representatives who currently or will assist patient after discharge: PHANI SMITH, * Community resources currently utilized None * Additional services required to return to the preadmission environment? No * Can the patient safely return to the preadmission environment? Yes * Has this patient been hospitalized within the prior 30 days at any hospital? No Coverage Notice Reviewer: [id number] Loly Engel Notice Issued Date-Time: 08/01/2018 17:10 Notice Type: IM Discharge Notice Notice Delivered To: Family Member Relationship to Patient: Spouse Flexible Shaft Winder Name: SARAH Delivery Method: HAND - Hand Delivered Nina Days: Prior Verbal Notification: Recipient Understood Notice: Yes Recipient Signature: Yes Med Rec Note Co-signed by Attending: Coverage Notice Comment: Reviewer: [id number] Loly Engel Notice Issued Date-Time: 08/08/2018 10:08 Notice Type: Patient Choice Letter Notice Delivered To: Patient Relationship to Patient: Flexible Shaft Winder Name: Delivery Method: HAND - Hand Delivered Nina Days: Prior Verbal Notification: Recipient Understood Notice: Yes Recipient Signature: Yes Med Rec Note Co-signed by Attending: Coverage Notice Comment: [facility] Reviewer: [id number] Loly Engel Notice Issued Date-Time: 08/08/2018 10:08 Notice Type: IM Discharge Notice Notice Delivered To: Patient Relationship to Patient: Flexible Shaft Winder Name: Delivery Method: HAND - Hand Delivered Nina Days: Prior Verbal Notification: Recipient Understood Notice: Yes Recipient Signature: Yes Med Rec Note Co-signed by Attending: Coverage Notice Comment: Last DP export: 08/09/18 10:22 a Patient Name: JOSÉ LUIS MARTINEZ Page [phone] at 1419 All edits/amendments must be made on the electronic document DICTATION DATE: 08/09/181417 SUPERVISOR INSULATION: TUSHAR 08/09/181417 RPT#: [id number] DC DATE: STATUS: ADM IN [facility] [address] [place] [address] END OF REPORT
--- NOTE | 2018-08-09 15:36 | MORECARE ---
CASE MANAGEMENT DISCHARGE SUMMARY PATIENT: JOSÉ LUIS MARTINEZ UNIT: [id number] ADM DATE: 07/30/18 AGE: 77 : 38 SEX: M ROOM/BED: D.1204 AUTHOR: ERNESTODOC PHYSICIAN: REFERRING PHYSICIAN: SURI MUELLER MD DATE OF SERVICE: 08/09/18 Discharge Plan Patient Name: JOSÉ LUIS MARTINEZ Facility: [facility]:[place] : 1940 Planned Disposition: Inpatient Rehab Anticipated Discharge Date: 08/09/18 Discharge Date: 08/09/2018 Expected LOS: 10 Initial Reviewer: [id number] Initial Review Date: 08/01/2018 Generated: 08/09/18 4:35 pm Comments DCP- Discharge Planning Updated by [id number]: Linda Engel on 08/09/18 1:[address] Patient Name: JOSÉ LUIS MARTINEZ Encounter No: [id number] : 1940 Primary Insurance: MEDICARE A & B Anticipated DC Date: 08-09-2018 Planned Disposition: Inpatient Rehab External Planned Provider: : DCP follow-up note: Patient and family in agreement with discharge plan. No changes to plan. Case management will follow and assist as needed. Linda Engel DCP- Discharge Planning Updated by [email or web address]: Linda Engel on 08/09/18 10:[address] Patient Name: JOSÉ LUIS MARTINEZ Admission Status: ER Accout number: [id number] Admission Date: 07-30-2018 : 1940 Admission Diagnosis:SHORTNESS OF BREATH Attending: SURI MUELLER Current LOS: 10 Anticipated DC Date: Planned Disposition: Inpatient Rehab Primary Insurance: MEDICARE A & B Discharge Planning Comments: CM SPOKE WITH DR. GREEN AND STATES PATIENT IS MEDICALLY STABLE FOR INPT REHAB. SPOKE WITH STELLA IN INPT REHAB AND WAITING CLOUD ENGAGEMENT PARTNER BACK TO SEE IF CAN ACCEPT PATIENT. CM TO FOLLOW AND ASSIST. High Risk Ob: Linda Engel DCP- Discharge Planning Updated by [id number]: Linda Engel on 08/01/18 4:[address] Patient Name: JOSÉ LUIS MARTINEZ Admission Status: ER Accout number: [id number] Admission Date: 07-30-2018 : 1940 Admission Diagnosis: Attending: SURI MUELLER Current LOS: 2 Anticipated DC Date: Planned Disposition: Primary Insurance: MEDICARE A & B Discharge Planning Comments: CM MET WITH PATIENT AND HIS ABOUT DC PLANNING/NEEDS. DENIES NEEDS AT THIS TIME. IMM SERVED. CM WILL FOLLOW AND ASSIST NEEDED WITH DC PLANNING/NEEDS. High Risk Ob: Linda Engel DCPIA - Discharge Planning Initial Assessment Updated by [id number]: Linda Engel on 08/01/18 5:23 pm * Is the patient Alert and Oriented? Yes * PCP SING * [facility] * Preadmission Environment Home with Family * ADLs Independent * Equipment None * List name and contact numbers for known caregivers / representatives who currently or will assist patient after discharge: PHANI SMITH, * Community resources currently utilized None * Additional services required to return to the preadmission environment? No * Can the patient safely return to the preadmission environment? Yes * Has this patient been hospitalized within the prior 30 days at any hospital? No Coverage Notice Reviewer: [id number] Loly Engel Notice Issued Date-Time: 08/01/2018 17:10 Notice Type: IM Discharge Notice Notice Delivered To: Family Member Relationship to Patient: Spouse Clinic Specialist Name: SARAH Delivery Method: HAND - Hand Delivered Nina Days: Prior Verbal Notification: Recipient Understood Notice: Yes Recipient Signature: Yes Med Rec Note Co-signed by Attending: Coverage Notice Comment: Reviewer: [id number] Loly Engel Notice Issued Date-Time: 08/08/2018 10:08 Notice Type: IM Discharge Notice Notice Delivered To: Patient Relationship to Patient: Clinic Specialist Name: Delivery Method: HAND - Hand Delivered Nina Days: Prior Verbal Notification: Recipient Understood Notice: Yes Recipient Signature: Yes Med Rec Note Co-signed by Attending: Coverage Notice Comment: Reviewer: [id number] Loly Engel Notice Issued Date-Time: 08/08/2018 10:08 Notice Type: Patient Choice Letter Notice Delivered To: Patient Relationship to Patient: Clinic Specialist Name: Delivery Method: HAND - Hand Delivered Nina Days: Prior Verbal Notification: Recipient Understood Notice: Yes Recipient Signature: Yes Med Rec Note Co-signed by Attending: Coverage Notice Comment: C[facility] Last DP export: 08/09/18 1:19 p Patient Name: JOSÉ LUIS MARTINEZ Page [id number] at 1536 All edits/amendments must be made on the electronic document DICTATION DATE: 08/09/181534 [address] REPORTER: TUSHAR 08/09/181534 RPT#: [id number] DC DATE:08/09/18 STATUS: DIS IN [facility] [address] [place] [address] END OF REPORT
[2018-08-11 22:06] LABS: IMMUNOGLOBULIN E 28 IU/mL (6-495)
[2018-08-14 06:13] LABS: IGG SUBCLASS 1 309 mg/dL (248-810); IGG SUBCLASS 2 358 mg/dL (130-555); IGG SUBCLASS 3 56 mg/dL (15-102); IGG SUBCLASS 4 6 mg/dL (2-96); IMMUNOGLOBULIN G 742 mg/dL (700-1600)
== END 2018-08-09 15:18 | DRG 643 ==
LOC: D.ER 03:01 → D.M3 04:33
PROVIDERS: Emergency Medicine; Internal Medicine Pulmonary Disease; ADMIT Internal Medicine Nephrology; ATTEND Internal Medicine Nephrology
DX: E22.2 Syndrome of inappropriate secretion of antidiuretic hormone (principal); J96.21 Acute and chronic respiratory failure with hypoxia; S06.4X0A Epidural hemorrhage without loss of consciousness, initial encounter; I50.31 Acute diastolic (congestive) heart failure; J15.6 Pneumonia due to other Gram-negative bacteria; J10.08 Influenza due to other identified influenza virus with other specified pneumonia; J98.11 Atelectasis; I25.10 Atherosclerotic heart disease of native coronary artery without angina pectoris; I11.0 Hypertensive heart disease with heart failure; W01.10XA Fall on same level from slipping, tripping and stumbling with subsequent striking against unspecified object, initial encounter; Y92.231 Patient bathroom in hospital as the place of occurrence of the external cause; S01.91XA Laceration without foreign body of unspecified part of head, initial encounter; S51.011A Laceration without foreign body of right elbow, initial encounter; J43.9 Emphysema, unspecified; Y95 Nosocomial condition; K21.9 Gastro-esophageal reflux disease without esophagitis; D50.9 Iron deficiency anemia, unspecified

== ENCOUNTER 2018-08-09 13:33 | Inpatient (IN) | payer MEDICARE ==
[~2018-08-09] VITALS: Ht 182.9 cm; Wt 88.0 kg
[~2018-08-09 13:33] MED LIST changes: +LISINOPRIL40 MG PO; +MEDROL DOSE PACK4 MG PO
[2018-08-09] MEDS ORDERED: FLUTICASONE PRO16 GM NASAL (14:03)
[2018-08-09] MEDS ORDERED: FLORAJEN3 CAPS460 MG PO (14:03)
[2018-08-09] MEDS ORDERED: BROVANA15 MCG/2 M INH (14:03)
[2018-08-09] MEDS ORDERED: THERMOTABS 1 GM1 GM PO (14:03)
[2018-08-09] MEDS ORDERED: DALIRESP500 MCG PO (14:03)
[2018-08-09] MEDS ORDERED: Tessalon Perle PO (14:03)
[2018-08-09] MEDS ORDERED: IPRAT-ALBUT 0.5-3 ML UPD (14:03)
[2018-08-09] MEDS ORDERED: FLOMAX0.4 MG PO (14:03)
[2018-08-09] MEDS ORDERED: PULMICORT0.5 MG/21 UPD (14:03)
[2018-08-09] MEDS ORDERED: ALBUTEROL2.5 MG/3 M INH (14:03)
[2018-08-09] MEDS ORDERED: MUCINEX DM ER1 EAC1 PO (14:03)
[2018-08-09] MEDS ORDERED: SINGULAIR10 MG PO (14:03)
[2018-08-09 17:06] VITALS: BP 119/71; BMI 26.3
[2018-08-09 19:00] VITALS: BP 119/71
[2018-08-09 20:31] LABS: APPEARANCE CLEAR (CLEAR); BILIRUBIN NEGATIVE (NEGATIVE); COLOR YELLOW (YELLOW); GLUCOSE NEGATIVE (NEGATIVE); KETONE NEGATIVE (NEGATIVE); NITRITE NEGATIVE (NEGATIVE); PROTEIN 1+ mg/dL (NEGATIVE); UROBILINOGEN NORMAL (NORMAL)
[2018-08-09 20:33] LABS: BACTERIA MODERATE /hpf (NONE SEEN); RED CELLS - URINE 25-50 /hpf (0-5); WHITE CELLS - URINE 0-5 /hpf (0-5)
[2018-08-10 07:11] LABS: BASOPHILS 0.1 % (0-2); EOSINOPHILS 0.1 % (0-7); HEMATOCRIT 35.1 % (42.0-54.0); HEMOGLOBIN 11.8 g/dL (13.5-17.5); LYMPHOCYTES 9.9 % (15-50); MCH 30.4 pg (26.0-34.0); MCHC 33.6 g/dL (31.0-37.0); MCV 90.5 fL (80.0-100.0); MEAN PLATELET VOLUME 9.6 fL (7.4-10.4); MONOCYTES 10.6 % (2-11); NEUTROPHILS 76.3 % (40-80); PLATELET COUNT 304 10x3/uL (130-400); RBC 3.88 10x6/uL (4.20-6.10); RDW 14.5 % (11.5-14.5); WBC 18.9 10x3/uL (4.8-10.8)
[2018-08-10 07:19] LABS: CALC OSMOLALITY 282 mosm/kg (275-300); CALCIUM 8.2 mg/dL (8.5-10.1); CARBON DIOXIDE 36.6 mmol/L (21.0-32.0); CHLORIDE - SERUM 99 mmol/L (98-107); CREATININE - SERUM 0.9 mg/dL (0.6-1.3); GLUCOSE 101 mg/dL (74-106); POTASSIUM - SERUM 3.4 mmol/L (3.5-5.1); SODIUM 137 mmol/L (136-145); UREA NITROGEN 38 mg/dL (7-18); eGFR NON AFRICAN AMERICAN 86 mL/min (90-120)
[2018-08-10 08:00] VITALS: BP 158/96
[2018-08-10 13:43] VITALS: Ht 182.9 cm; Wt 88.0 kg
[2018-08-10 19:00] VITALS: BP 186/106
[2018-08-11 07:30] VITALS: BP 155/69
[2018-08-11 20:00] VITALS: BP 161/75
[2018-08-12 08:00] VITALS: BP 134/61
[2018-08-12 20:08] VITALS: BP 164/79
[2018-08-13 07:12] LABS: BASOPHILS 0 % (0-2); EOSINOPHILS 0.1 % (0-7); HEMATOCRIT 34.8 % (42.0-54.0); HEMOGLOBIN 11.6 g/dL (13.5-17.5); IMMATURE GRANULOCYTES 1.2 % (0-5); MCH 30.4 pg (26.0-34.0); MCHC 33.3 g/dL (31.0-37.0); MCV 91.3 fL (80.0-100.0); MEAN PLATELET VOLUME 9.5 fL (7.4-10.4); MONOCYTES 9.4 % (2-11); NEUTROPHILS 79.3 % (40-80); RBC 3.81 10x6/uL (4.20-6.10); RDW 14.9 % (11.5-14.5); WBC 15.7 10x3/uL (4.8-10.8)
[2018-08-13 07:20] LABS: CALC OSMOLALITY 274 mosm/kg (275-300); CALCIUM 8.1 mg/dL (8.5-10.1); CARBON DIOXIDE 30.4 mmol/L (21.0-32.0); CHLORIDE - SERUM 101 mmol/L (98-107); CREATININE - SERUM 0.7 mg/dL (0.6-1.3); GLUCOSE 100 mg/dL (74-106); POTASSIUM - SERUM 3.9 mmol/L (3.5-5.1); SODIUM 135 mmol/L (136-145); UREA NITROGEN 27 mg/dL (7-18); eGFR NON AFRICAN AMERICAN > 90 mL/min (90-120)
[2018-08-13 07:24] LABS: PLATELET COUNT 235 10x3/uL (130-400)
[2018-08-13 08:17] VITALS: BP 131/75
[2018-08-13 19:00] VITALS: BP 153/84
[2018-08-14 08:00] VITALS: BP 153/76
[2018-08-14 19:00] VITALS: BP 140/74
[2018-08-15 07:16] LABS: BASOPHILS 0 % (0-2); EOSINOPHILS 0.2 % (0-7); HEMATOCRIT 33.7 % (42.0-54.0); HEMOGLOBIN 11.3 g/dL (13.5-17.5); IMMATURE GRANULOCYTES 1.7 % (0-5); LYMPHOCYTES 11.6 % (15-50); MCH 30.5 pg (26.0-34.0); MCHC 33.5 g/dL (31.0-37.0); MCV 91.1 fL (80.0-100.0); MEAN PLATELET VOLUME 10.2 fL (7.4-10.4); MONOCYTES 12.9 % (2-11); NEUTROPHILS 73.6 % (40-80); PLATELET COUNT 224 10x3/uL (130-400); RDW 14.8 % (11.5-14.5); WBC 13.1 10x3/uL (4.8-10.8)
[2018-08-15 07:26] LABS: CALC OSMOLALITY 272 mosm/kg (275-300); CALCIUM 7.7 mg/dL (8.5-10.1); CARBON DIOXIDE 29.3 mmol/L (21.0-32.0); CHLORIDE - SERUM 101 mmol/L (98-107); CREATININE - SERUM 0.7 mg/dL (0.6-1.3); GLUCOSE 86 mg/dL (74-106); POTASSIUM - SERUM 3.8 mmol/L (3.5-5.1); SODIUM 136 mmol/L (136-145); eGFR NON AFRICAN AMERICAN > 90 mL/min (90-120)
[2018-08-15 07:32] LABS: UREA NITROGEN 17 mg/dL (7-18)
[2018-08-15 08:00] VITALS: BP 173/74
== END 2018-08-15 14:35 | disposition home health service (06) | DRG 91 ==
LOC: D.REHAB 13:33
PROVIDERS: ADMIT Emergency Medicine; ATTEND Emergency Medicine
DX: G72.89 Other specified myopathies (principal); J18.9 Pneumonia, unspecified organism; I50.31 Acute diastolic (congestive) heart failure; J96.21 Acute and chronic respiratory failure with hypoxia; J98.11 Atelectasis; J44.1 Chronic obstructive pulmonary disease with (acute) exacerbation; E87.1 Hypo-osmolality and hyponatremia; Y95 Nosocomial condition; I10 Essential (primary) hypertension; D72.829 Elevated white blood cell count, unspecified; K21.9 Gastro-esophageal reflux disease without esophagitis; I27.20 Pulmonary hypertension, unspecified; D50.9 Iron deficiency anemia, unspecified; R53.81 Other malaise; I25.10 Atherosclerotic heart disease of native coronary artery without angina pectoris; M19.90 Unspecified osteoarthritis, unspecified site; J44.9 Chronic obstructive pulmonary disease, unspecified; R13.12 Dysphagia, oropharyngeal phase; J11.1 Influenza due to unidentified influenza virus with other respiratory manifestations; R33.9 Retention of urine, unspecified; E83.42 Hypomagnesemia

== ENCOUNTER → 2019-05-09 10:35 | Outpatient (CLI) | payer MEDICARE ==
[2018-08-10 13:43] VITALS: BMI 26.3
[~2019-05-09 10:35] MED LIST changes: +ALBUTEROL2.5 MG/3 M INH; +BROVANA15 MCG/2 M INH; +DALIRESP500 MCG PO; +FLOMAX0.4 MG PO; +FLORAJEN3 CAPS460 MG PO; +FLUTICASONE PRO16 GM NASAL; +IPRAT-ALBUT 0.5-3 ML UPD; +MUCINEX DM ER1 EAC1 PO; +PULMICORT0.5 MG/21 UPD; +SINGULAIR10 MG PO; +THERMOTABS 1 GM1 GM PO; +Tessalon Perle PO
== END | disposition home or self-care (01) ==
LOC: D.HCCECHO 04-30 10:00 → D.HCCARDIO 04-30 10:00 → D.HCCECHO 10:35
PROVIDERS: ATTEND Internal Medicine Cardiovascular Disease
DX: I25.10 Atherosclerotic heart disease of native coronary artery without angina pectoris (principal)

== ENCOUNTER 2020-02-06 10:40 | Day surgery (SDC) | payer MEDICARE ==
[~2020-02-06] VITALS: Ht 182.9 cm; Wt 81.4 kg
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
--- NOTE | ~2020-02-06 | HEMODYNAMI ---
PATIENT:JOSÉ LUIS MARTINEZ MEDICAL RECORD: [id number] : 36 LOCATION:D.CAT ADMISSION DATE: 02/06/20 Generatedon:02/06/202014:36 Patient name: JOSÉ LUIS MARTINEZ Patient #: [id number] SSN: [id number] : 1940 Date of study: 02/06/2020 Page: Of Hemodynamic Procedure Report Patient Data Patient Demographics Procedure consent was obtained First Name: JOSÉ LUIS Gender: Male Last Name: JUAN : 1940 Middle Initial: H Age: 79 year(s) Patient #: [id number] Race: SSN: [id number] Additional ID: [id number] Contact details [address]: [address] [place] [address] State: [place] City: [place] Zip code: [address] Past Medical History Allergies: No known allergies Admission Admission Data Admission Date: 02/06/2020 Admission Time: 10:40 Lab Results Lab Result Date: 02/06/2020 Lab Result Time: 0:00 Biochemistry Name Units Result Min Max BUN mg/dl 19 --(----)*- 7 18 Creatinine mg/dl 1.1 --(--*-)-- 0.6 1.3 Procedure Procedure Types Cath Procedure Diagnostic Procedure PPM/ICD PPM Dual Implant Sedation Charges Moderate Sedation up to 15 minutes Procedure Description Procedure Date Procedure Date: 02/06/2020 Procedure Start Time: 14:05 Procedure End Time: 14:34 Procedure Staff Name Function Uriel De Oliveira MD Performing Physician Rachana Taveras RT Monitor Wagner Lewis RN Nurse Nancy Powell RT Scrub Mandeep Jc MD Assisting physician Procedure Data Cath Procedure Fluoroscopy Diagnostic fluoroscopy Total fluoroscopy Time: 2.4 time: 2.4 min min Diagnostic fluoroscopy Total fluoroscopy dose: dose: 111.34 mGy 111.34 mGy Estimated blood loss: 10 ml Procedure Complications No complications Procedure Medications Medication Administration Route Dosage 0.9% NaCl I.V. 100 ml/hr Oxygen etCO2 Nasal cannula 2 l/min Lidocaine 1% added to field 20 Ancef (1Gm/50ml NS) I.V.P.B 1 g Ancef Irrigation 1 g (1gm/500ml NS) Versed I.V. 2 mg Fentanyl I.V. 100 mcg Versed I.V. 1 mg Fentanyl I.V. 50 mcg Hemodynamics Rest Heart Rate: 63 (bpm) Snapshots Pre Cath Intra NCS Post Cath Vital Signs Time Heart Resp SPO2 etCO2 NIBP (mmHg) Rhythm Pain Sedation Rate (ipm) (%) (mmHg) Status Level (bpm) 13:50:24 59 16 95 29.9 174/103(139) 3 0 (11) 10(A) degree , No Heart pain Block 13:54:16 63 17 94 31.4 163/87(125) 3 0 (11) 10(A) degree , No Heart pain Block 13:58:07 61 13 94 19.4 150/88(119) 3 0 (11) 10(A) degree , No Heart pain Block 14:02:31 60 13 92 32.2 143/80(107) 3 0 (11) 10(A) degree , No Heart pain Block 14:06:25 53 14 92 1.4 140/72(98) 3 0 (11) 10(A) degree , No Heart pain Block 14:10:25 54 13 94 0 138/60(113) 3 0 (11) 10(A) degree , No Heart pain Block 14:14:59 50 10 89 39.7 129/63(98) 3 0 (11) 9(A) degree , No Heart pain Block 14:18:59 52 11 93 33.7 129/59(100) 3 0 (11) 9(A) degree , No Heart pain Block 14:23:15 93 13 94 32.9 133/83(108) Paced 0 (11) 9(A) , No pain 14:27:31 101 11 94 33.7 145/79(99) Paced 0 (11) 10(A) , No pain 14:31:18 93 11 94 36.7 141/82(104) Paced 0 (11) 10(A) , No pain Medications Time Medication Route Dose Verified Delivered Reason Notes Effectiv eness by by 13:52:20 0.9% NaCl I.V. 100 Wagner Wagner Per ml/hr Debbie Lewis physician RN RN 13:52:29 Oxygen etCO2 2 Wagner Wagner for low 02 Nasal l/min Lorigan Lorigan sats cannula RN RN 13:52:49 Lidocaine added 20ml Wagner Wagner for local 1% to vial Lorigan Lorigan anesthetic field x2 RN RN 13:53:19 Ancef I.V.P.B 1 g Wagner Wagner Per (1Gm/50ml Debbie Lewis physician NS) RN RN 13:53:48 Ancef Topical 1 g Wagner Wagner used for Irrigation ( added Lorigan Lorigan procedure (1gm/500ml to the RN RN NS) field ) 14:06:52 Versed I.V. 2 mg Wagner Wagner for Lorigan Lorigan sedation RN RN 14:07:47 Fentanyl I.V. 100 Wagner Wagner for mcg Lorigan Lorigan sedation RN RN 14:10:22 Versed I.V. 1 mg Wagner Wagner for Lorigan Lorigan sedation RN RN 14:11:26 Fentanyl I.V. 50 Wagner Wagner for mcg Lorigan Lorigan sedation RN plumber gasfitter Log Time Note 13:32:33 Procedure Status Elective Heart Cath (OP). 13:34:53 Nancy Powell RT(R) sent for patient. Start room use. 13:49:20 Time tracking: Regular hours (M-F 7:00 - 5:00) 13:49:27 Plan of Care:Hemodynamics will remain stable., Cardiac rhythm will remain stable., Comfort level will be maintained., Respiratory function will remain adequate., Patient/ family verbilizes understanding of procedure., Procedure tolerated without complication., Recovers from procedure without complications.. 13:49:36 Patient received from Pre/Post Procedure Room to CCL 3 Alert and oriented. Tansferred to table in Supine position. 13:49:40 Signed procedure consent form obtained from patient. 13:49:42 Warm blankets applied, and abel hugger turned on for patient comfort. 13:49:43 Correct patient and procedure confirmed by team. 13:49:44 ECG and BP/O2 sat monitors applied to patient. 13:49:45 Vital chart was started 13:49:46 Baseline sample Acquired. 13:49:54 Rhythm: 3rd degree heart block 13:49:56 Full Disclosure recording started 13:49:57 - 13:52:20 0.9% NaCl 100 ml/hr I.V. was administered by Wagner Lewis RN; Per physician; Verbal order read back and verified. 13:52:29 Oxygen 2 l/min etCO2 Nasal cannula was administered by Wagner Lewis RN; for low 02 sats; Verbal order read back and verified. 13:52:49 Lidocaine 1% 20ml vial x2 added to field was administered by Wagner Lewis RN; for local anesthetic; Verbal order read back and verified. 13:53:19 Ancef (1Gm/50ml NS) 1 g I.V.P.B was administered by Wagner Lewis RN; Per physician; Verbal order read back and verified. 13:53:48 Ancef Irrigation (1gm/500ml NS) 1 g Topical ( added to the field ) was administered by Wagner Lewis RN; used for procedure; Verbal order read back and verified. 13:58:25 H&P Date Dictated: 02/06/2020 H&P Addendum completed by physician on day of procedure. (MUST COMPLETE FOR ALL OUTPATIENTS), New H&P dictated by physician.. 13:58:27 Pre-procedure instructions explained to patient. 13:58:28 Pre-op teaching completed and patient verbalized understanding. 13:58:31 Family in patients room. 13:58:33 Patient NPO since Midnight. 13:58:41 Patient allergic to No known allergies 13:58:46 Is patient on blood thinner?Yes 13:58:51 ACC The patient was administered the following blood thiners within the last 24 hours: ACCPlavix on 02-04-2020 13:59:22 Patient diabetic? No. 13:59:29 ----Pre-sedation anethsthesia assessment.---- 13:59:33 Previous problem with sedation/anesthesia? No ? 13:59:35 Snore? Yes 13:59:43 Sleep apnea? No 13:59:46 Deviated septum? Unknown 13:59:48 Opens mouth fully? Yes 13:59:51 Sticks out tongue? Yes 13:59:54 Airway obstruction? No ? 13:59:58 Dentures? No ? 14:00:13 IV patent on arrival in left wrist with 0.9% NaCl at [facility]. 14:00:48 Lab Result : BUN 19 mg/dl 14:00:48 Lab Result : Creatinine 1.1 mg/dl 14:00:59 Left chest area was prepped with chlora-prep and draped in sterile fashion 14:01:01 Alarms reviewed by R. N. 14:01:01 Sharps counted by scrub and verified by R.N. 14:01:13 Use device set GRIS PPM 14:01:15 2-0 Ticron Multipack ([id number]) opened to sterile field. 14:01:15 3-0 Vicryl Single Pack [id number] opened to sterile field. 14:01:16 5-0 Monocryl PS2 [id number] opened to sterile field. 14:01:17 Cautery Tip Cemetery Workers Supervisor opened to sterile field. 14:01:18 Cautery Pushbutton Pencil opened to sterile field. 14:01:18 Mepilex Dressing ([id number]) opened to sterile field. 14:01:20 Immobilizer Large opened to sterile field. 14:01:36 Medtronic sales representative livestock LILLY CIFUENTES present for procedure. 14:02:49 Pre sharps counted by scrub and verified by RN: Sutures: 7; Sponges: 5; Stick needles: 2; Skin needles: 2; Blade: 1; Cautery: 1 14:02:58 Grounding pad site Left thigh. 14:03:00 Grounding pad site free from injury. 14:03:08 Physician arrived 14:03:09 --------ALL STOP TIME OUT------ 14:03:10 Final Timeout: patient, procedure, and site verified with staff and physician. All members of the team are in agreement. 14:03:20 Left chest site verified by team. 14:03:27 Medtronic 4074-52 PPM Lead opened to sterile field. 14:03:27 Fire Safety Assessment: A--An alcohol-based skin anteseptic being used preoperatively., B--The operative or invasive procedure is being performed above the xiphoid process or in the oropharynx., C--Open oxygen or nitrous oxide is being used., E--There are other possible contributors. 14:03:28 Medtronic 4574-45 PPM Lead opened to sterile field. 14:03:33 Physical assessment completed. ASA score P 2 - A patient with mild systemic disease as per Uriel De Oliveira MD. 14:03:41 Sedation plan: IV Moderate Sedation Medication:Versed, Fentanyl 14:05:39 Procedure started. 14:05:52 Lidocaine 1% was administered to left subclavicular area by Mandeep Jc MD . 14:06:52 Versed 2 mg I.V. was administered by Wagner Lewis RN; for sedation; Verbal order read back and verified. 14:07:47 Fentanyl 100 mcg I.V. was administered by Wagner Lewis RN; for sedation; Verbal order read back and verified. 14:08:24 Incision made to left subclavicular area. 14:10:22 Versed 1 mg I.V. was administered by Wagner Lewis RN; for sedation; Verbal order read back and verified. 14:10:38 Generator pocket made/opened. 14:11:26 Fentanyl 50 mcg I.V. was administered by Wagner Lewis RN; for sedation; Verbal order read back and verified. 14:11:58 Left subclavian vein accessed with 7Fr Peel Away Sheath. 14:12:04 Left subclavian vein accessed with 7Fr Peel Away Sheath. 14:12:12 Ventricular lead inserted and advanced. 14:12:16 Atrial lead inserted and advanced. 14:16:13 Ventricular lead positioned. 14:16:18 Ventricular lead tested. 14:19:[address] Generator [id number] opened to sterile field. 14:19:37 Atrial lead positioned. 14:19:42 Atrial lead tested. 14:19:44 Peel-a-way sheath was split and removed. 14:19:45 Peel-a-way sheath was split and removed. 14:19:58 PPM Dual was attached to lead(s) and inserted into pocket. 14:22:59 Device pocket was irrigated with Ancef. 14:23:18 Atrial lead attachment was completed with 2-0 ticron. 14:23:27 Ventricular lead attachment was completed with 2-0 ticron. 14:24:01 PPM Dual was inserted subcutaneously to left chest. 14:25:40 Generator was sutured in place with 2-0 ticron. 14:26:01 Subcutaneous closure was completed with 3-0 vicryl plus. 14:27:08 Parameters-- Generator: Mode: DDDR. Lower Rate: 60bpm. Upper Rate: 130bpm. 14:28:59 Parameters--Ventricular P/R Wave: 5.5mV. Current: 0.3mA; Threshold: 0.3V; Impedence: 1207OHMS. 14:29:38 Skin closure was completed with 5-0 monocryl. 14:30:21 Parameters--Atrial P/R Wave: 4.0mV. Current: 0.5mA; Threshold: 0.3V; Impedence: 686OHMS. 14:30:27 Lt Chest incision was dressed with Mepilex dressing. 14:30:30 Post sharps counted by scrub and verified by RN: Sutures: 7; Sponges: 5 ; Stick needles: 2; Skin needles: 2; Blade: 1; Cautery: 1 14:30:46 Procedure ended.(Physican Out) 14:31:57 Fluoroscopy time 02.40 minutes. 14:32:05 Flurop Dose total: 111.34 14:32:05 Fluoroscopy dose: 111.34 mGy 14:32:13 Dose Area Product 1206.98 mGy/cm. 14:32:17 Sharps counted by scrub and verified by R.N. 14:32:27 Post-procedure physical assessment completed. ASA score P 2 - A patient with mild systemic disease as per Uriel De Oliveira MD. 14:32:36 Post Chest area:stable 14:32:41 Post procedure rhythm: paced 14:32:45 Estimated blood loss: 10 ml 14:32:47 Post procedure instruction explained to patient.Patient verbalizes understanding. 14:32:49 Patient needs reinforcement of post procedure teaching. 14:33:50 Procedure type changed to Cath procedure, Diagnostic procedure, PPM/ICD , PPM Dual Implant, Sedation Charges, Moderate Sedation up to 15 minutes 14:33:53 Procedure and supply charges have been captured, reviewed, submitted an d are correct. 14:34:22 Procedure Complication : No complications 14:34:26 Vital chart was stopped 14:34:35 Operative report dictated upon procedure completion. 14:34:36 See physician's report for complete and final results. 14:34:42 Report given to Pre/Post Procedure Room. 14:34:47 Patient transfered to Pre/Post Procedure Room with Stretcher. 14:34:54 Procedure ended. 14:34:54 Full Disclosure recording stopped 14:34:57 End room use (Document Last) Device Usage Item Name Manufacture Quantity Catalog Hospital Part Current Minima l Lot# / Number Charge Number Stock Stock Serial# Code 2-0 Ticron Ethicon 1 [id number] [id number] 81103 [id number] 5 Multipack ([id number]) 3-0 Vicryl Ethicon 1 [id number] 283499 514660 251911 5 Single Pack [id number] 5-0 Monocryl Ethicon 1 Y495G 346847 508952 253946 5 PS2 Y495G Cautery Tip Microtek 1 [id number] 791852 578738 428562 5 [employer] Cautery Microtek 1 [id number] 138097 20017 684303 5 Pushbutton [employer] Inc[employer] Pencil Mepilex Cardinal 1 383513 438797 239505 771167 5 [facility] ([id number]) Immobilizer Cardinal 1 79-72216 997122 474678 473894 5 Large Health Medtronic Medtronic 1 4074-52 696644 307194 416406 5 4074-52 PPM [id number] Lead 12-0 Medtronic Medtronic 1 4574-45 195946 664403 367651 5 4574-45 PPM [id number] Lead 08-18 Medtronic Medtronic 1 [id number] 269048 7987615 953155 5 MIRIAN XT [id number] Generator 06-18 W1 Signature Audit [place] Stage Time Signature Unsigned Intra-Procedure 02/06/2020 Rachana 2:35:21 PM Darcy RT(R) (CV) Intra-Procedure 02/06/2020 Wagner 2:36:10 PM Debbie JAIMES Intra-Procedure 02/06/2020 Uriel Ng 2:36:36 PM Chuy [place] [place] [address] [place] [address]
--- NOTE | ~2020-02-06 | OP ---
PATIENT NAME: JAY ZENG MEDICAL RECORD: [id number] :38 LOCATION:D.CAT ADMISSION DATE: SURGEON: WEI SINGH MD DATE OF OPERATION: 02/06/2020 PROCEDURE: Lead portion of permanent pacemaker placement. INDICATION: Sick sinus syndrome with complete heart block. SURGEON: Mandeep Jc MD DESCRIPTION OF PROCEDURE: After left subclavian was cannulated via modified Seldinger technique via Dr. Jc first under fluoroscopic guidance, I placed the RV lead in the RV apex without difficulty. After adequate R waves and thresholds were obtained, again under fluoroscopic guidance, I placed the right atrial lead in the right atrial appendage without difficulty. After adequate P waves and thresholds were obtained, I then attached the leads to the appropriate poles of the generator and the pocket was closed via Dr. Jc. IMPRESSION: Successful lead portion of permanent pacemaker placement of Jay Zeng. ESTIMATED BLOOD LOSS: Minimal. COMPLICATIONS: None. DISPOSITION: To the floor, stable. NTS:[id number] Voice Confirmation ID: [id number] DOCUMENT ID: [id number] WEI SINGH MD CC: [id number] DICTATION DATE: 02/06/20 142 CULVERT INSTALLER: 02/06/202041 [facility] SDC 02/06/20 [facility] [address] [id number]
[2020-02-06] MEDS ORDERED: HYDRALAZINE HCL50 MG PO (11:03)
[2020-02-06] MEDS ORDERED: NORVASC10 MG PO (11:04)
[2020-02-06] MEDS ORDERED: HCTZ25 MG PO (11:05)
[2020-02-06 11:19] VITALS: BP 117/63; Ht 182.9 cm; Wt 81.4 kg
[2020-02-06 11:40] LABS: CALCIUM 9.5 mg/dL (8.5-10.1); CREATININE - SERUM 1.1 mg/dL (0.6-1.3)
[2020-02-06 11:56] LABS: INR 0.99 (0.85-1.17); PROTIME 13.1 SECONDS (11.6-15.0)
--- NOTE | 2020-02-06 14:45 | NUR ---
PT REC'D TO ROOM 6 VIA STRETCHER FROM SIGN FABRICATOR. MONITORS ESTAB. AT BS. SEE [employer]BILE INSURANCE CLAIM EXAMINER. ALARMS ON AND C/L IN REACH.
--- NOTE | 2020-02-06 15:00 | NUR ---
PCXR DONE. L CHEST PPM SITE C/D/I. VSS. AT BS. C/L IN REACH.
--- NOTE | 2020-02-06 15:20 | NUR ---
VSS, CM - PACED. PT GIVEN SANDWICH AND SPRITE PER REQUEST.
--- NOTE | 2020-02-06 15:30 | NUR ---
L CHEST DSG C/D/I, L ARM REMAINS IN SLING. VSS. AT .
--- NOTE | 2020-02-06 15:45 | NUR ---
L CHEST DSG C/D/I, VSS. CM- PACED. PIV D/C'D INTACT, DSG APPLIED. PT ASSISTED UP WITH GETTING DRESSED, AND HE AND HIS EDUCATED ON USE OF SLING.
--- NOTE | 2020-02-06 15:55 | NUR ---
ALL DISCHARGE INSTRUCTIONS REVIEWED WITH PT AND , INCLUDING RESTRICTIONS, MEDS AND F/U APPT. BOTH VERBALIZE UNDERSTANDING.
--- NOTE | 2020-02-06 16:00 | NUR ---
PT D/C'D VIA WC TO PRIVATE VEHICLE WITH ALL PAPERWORK AND BELONGINGS.
== END 2020-02-06 16:00 | disposition home or self-care (01) ==
LOC: D.CATH 10:40
PROVIDERS: ATTEND Internal Medicine Interventional Cardiology
DX: I49.5 Sick sinus syndrome (principal); I44.2 Atrioventricular block, complete; I10 Essential (primary) hypertension; R06.00 Dyspnea, unspecified; R53.83 Other fatigue; I25.10 Atherosclerotic heart disease of native coronary artery without angina pectoris

== ENCOUNTER 2020-02-16 18:24 | Inpatient (IN) | payer MEDICARE ==
[~2020-02-16] VITALS: Ht 182.9 cm; Wt 90.7 kg
[~2020-02-16 18:24] MED LIST changes: +HCTZ25 MG PO; +HYDRALAZINE HCL50 MG PO; +NORVASC10 MG PO
[2020-02-16 18:50] LABS: BASOPHILS 0.1 % (0-2); EOSINOPHILS 0.1 % (0-7); HEMATOCRIT 38.4 % (42.0-54.0); HEMOGLOBIN 13.5 g/dL (13.5-17.5); IMMATURE GRANULOCYTES 0.7 % (0-5); LYMPHOCYTES 10.3 % (15-50); MCH 30.9 pg (26.0-34.0); MCHC 35.2 g/dL (31.0-37.0); MCV 87.9 fL (80.0-100.0); MEAN PLATELET VOLUME 9.7 fL (7.4-10.4); MONOCYTES 10.4 % (2-11); NEUTROPHILS 78.4 % (40-80); RBC 4.37 10x6/uL (4.20-6.10); RDW 13.8 % (11.5-14.5); WBC 16.1 10x3/uL (4.8-10.8)
[2020-02-16 18:51] LABS: PLATELET COUNT 298 10x3/uL (130-400)
[2020-02-16 18:58] LABS: APTT 25.5 SECONDS (22.8-39.4); INR 0.98 (0.85-1.17); PROTIME 12.9 SECONDS (11.6-15.0)
[2020-02-16 19:00] VITALS: BP 153/71
[2020-02-16 19:09] LABS: CALC OSMOLALITY 256 mosm/kg (275-300); CALCIUM 8.8 mg/dL (8.5-10.1); CARBON DIOXIDE 30.2 mmol/L (21.0-32.0); CHLORIDE - SERUM 87 mmol/L (98-107); CREATININE - SERUM 1.1 mg/dL (0.6-1.3); GLUCOSE 127 mg/dL (74-106); POTASSIUM - SERUM 3.3 mmol/L (3.5-5.1); SODIUM 123 mmol/L (136-145); UREA NITROGEN 31 mg/dL (7-18); eGFR NON AFRICAN AMERICAN 68 mL/min (90-120)
[2020-02-16 19:24] LABS: ALBUMIN 3.6 g/dL (3.4-5.0); ALKALINE PHOSPHATASE 101 U/L (30-120); ALT (SGPT) 25 U/L (10-68); BILIRUBIN - TOTAL 0.34 mg/dL (0.2-1.3); CREATINE KINASE 149 UL (21-232); PRO BNP 3248 pg/mL (0-450); PROTEIN - SERUM 7.2 g/dL (6.4-8.2); TROPONIN-I 0.033 ng/mL (0.000-0.060)
[2020-02-16 20:02] LABS: C-REACTIVE PROTEIN 1.7 mg/dL (0.0-0.9)
--- NOTE | 2020-02-16 21:28 | NUR ---
PT STATES NEEDS TO USE THE URINAL. AFTER ATTEMPTING PT STATES CANNOT USE THE URINAL AND HAS HAD TO HAVE A LOYD BEFORE. 16 FR. LOYD INSERTED WITH IMMEDIATE RETURN OF 400CC CLEAR YELLOW URINE.
--- NOTE | 2020-02-16 22:53 | NUR ---
PT TO ROOM 2129 VIA STRETCHER ACCOMPANIED BY HOSPITAL STAFF.
[2020-02-17 00:50] VITALS: BP 135/70
[2020-02-17 03:32] VITALS: BP 135/70
[2020-02-17 03:54] VITALS: BP 135/70
[2020-02-17 08:10] LABS: BASOPHILS 0 % (0-2); EOSINOPHILS 0.1 % (0-7); HEMATOCRIT 35.5 % (42.0-54.0); MCH 29.8 pg (26.0-34.0); MCHC 33.8 g/dL (31.0-37.0); MCV 88.1 fL (80.0-100.0); MEAN PLATELET VOLUME 9.8 fL (7.4-10.4); MONOCYTES 12.1 % (2-11); NEUTROPHILS 74.8 % (40-80); PLATELET COUNT 246 10x3/uL (130-400); RBC 4.03 10x6/uL (4.20-6.10); RDW 13.9 % (11.5-14.5)
[2020-02-17 08:11] LABS: WBC 10.5 10x3/uL (4.8-10.8)
[2020-02-17 08:36] LABS: ALBUMIN 2.9 g/dL (3.4-5.0); ALKALINE PHOSPHATASE 80 U/L (30-120); BILIRUBIN - TOTAL 0.26 mg/dL (0.2-1.3); CALCIUM 8.1 mg/dL (8.5-10.1); CARBON DIOXIDE 32.2 mmol/L (21.0-32.0); CHLORIDE - SERUM 90 mmol/L (98-107); CKMB 4.3 U/L (0.0-3.6); CREATINE KINASE 102 UL (21-232); POTASSIUM - SERUM 3.2 mmol/L (3.5-5.1); PRO BNP 3187 pg/mL (0-450); SODIUM 126 mmol/L (136-145); TROPONIN-I 0.021 ng/mL (0.000-0.060); eGFR NON AFRICAN AMERICAN 76 mL/min (90-120)
[2020-02-17 08:37] LABS: ALT (SGPT) 35 U/L (10-68); CALC OSMOLALITY 255 mosm/kg (275-300); GLUCOSE 77 mg/dL (74-106); UREA NITROGEN 23 mg/dL (7-18)
--- NOTE | 2020-02-17 10:05 | NUR ---
PT AWAKE AND ORIENTED, LYING IN BED. REFUSED BREAKFAST. PT STATES THAT HE IS HAVING DIFFICULTY BREATHING, NOTED TACHYPNEA WITH RESPIRATIONS 28-30 TIMES A MINUTE. PT IS PRESENT BRIGHT RED WITH A RASH LIKE APPEARENCE. INFORMED GRAFFITI CLEANER AND PAGED PULINOLOGY. DR. JON GAVE ORDERS FOR ABGS AND CXR. WILL ORDER. SPOKE WITH PTS ON THE PHONE, SHE STAES THIS IS ATYPICAL PRESENTATION FOR THE PT. WILL CNT. TO MONITOR. PT V/S OTHERWISE STABLE AMD WNL FOR THE PT. CL IN REACH, SRX2.
[2020-02-17 12:22] VITALS: BP 139/68
--- NOTE | 2020-02-17 12:45 | NUR ---
PT AWAKE AND ORIENTED, LYING IN BED. C/O SHROTNESS OF BREATH. V/S STABLE. EMPTIED 1200 OUT OF LOYD. TOOK MEDICATIONS IWTHOUT COMPLICATIONS. WILL CNT. TO MONITOR. CL IN REACH, SRX2.
[2020-02-17 13:32] VITALS: Ht 182.9 cm; Wt 90.7 kg
--- NOTE | 2020-02-17 18:26 | NUR ---
I have reviewed this patient and I concur with the Shift Assessment completed by the Licensed Practical Nurse today this shift.
--- NOTE | 2020-02-17 19:46 | NUR ---
RECEIVED REPORT, WILL ASSUME CARE OF PT, PT DENIES ANY NEEDS AT THIS TIME, BED IS LOW, SRX2, CALL LIGHT IN REACH, WILL CONTINUE PLAN OF CARE
[2020-02-17 22:45] VITALS: BP 147/57
[2020-02-18 02:12] VITALS: BP 160/82
[2020-02-18 06:14] VITALS: BP 166/75
[2020-02-18 07:00] VITALS: BP 177/79
[2020-02-18 07:01] LABS: BASOPHILS 0.1 % (0-2); EOSINOPHILS 0.3 % (0-7); HEMATOCRIT 35.8 % (42.0-54.0); HEMOGLOBIN 12.1 g/dL (13.5-17.5); LYMPHOCYTES 7.3 % (15-50); MCHC 33.8 g/dL (31.0-37.0); MCV 88.8 fL (80.0-100.0); MEAN PLATELET VOLUME 9.3 fL (7.4-10.4); MONOCYTES 8.3 % (2-11); PLATELET COUNT 218 10x3/uL (130-400); RBC 4.03 10x6/uL (4.20-6.10); RDW 13.7 % (11.5-14.5)
[2020-02-18 07:42] LABS: ALBUMIN 2.9 g/dL (3.4-5.0); ALKALINE PHOSPHATASE 85 U/L (30-120); ALT (SGPT) 39 U/L (10-68); CALC OSMOLALITY 255 mosm/kg (275-300); CARBON DIOXIDE 32.3 mmol/L (21.0-32.0); CHLORIDE - SERUM 90 mmol/L (98-107); CREATININE - SERUM 0.8 mg/dL (0.6-1.3); GLUCOSE 87 mg/dL (74-106); POTASSIUM - SERUM 3.3 mmol/L (3.5-5.1); PROTEIN - SERUM 5.6 g/dL (6.4-8.2); SODIUM 127 mmol/L (136-145); eGFR NON AFRICAN AMERICAN > 90 mL/min (90-120)
[2020-02-18 07:43] LABS: UREA NITROGEN 17 mg/dL (7-18)
--- NOTE | 2020-02-18 10:36 | NUR ---
HAVE NOTE ON DESK TO RETURN CALL TO PT'S SARAH. CALLED NUMBER AND DID NOT GET AN ANSWER AND VOICEMAIL MACHINE NOT SET UP.
[2020-02-18 11:00] VITALS: BP 145/76
--- NOTE | 2020-02-18 13:43 | NUR ---
LEFT AC 20G IV OUT WITH CATH INTACT.
--- NOTE | 2020-02-18 14:34 | NUR ---
I have reviewed this patient and I concur with the Shift Assessment completed by the Licensed Practical Nurse today this shift.
--- NOTE | 2020-02-18 14:38 | NUR ---
Serafin. GOT PT UP AND PUT HIM IN THE RECLINER.
[2020-02-18 15:00] VITALS: BP 131/82
--- NOTE | 2020-02-18 18:25 | NUR ---
OT NOTE: PT COMPLETED SIT TO STAND WITH CGA. PT COMPLETED ADL MOB WITH CGA. PT COMPLETED UE AROM WITH SBA AT EOB. [phone] THANK YOU,RUTHANN BAKER.NATASHA
--- NOTE | 2020-02-18 19:37 | NUR ---
REPORT RECIEVED AND ROUNDING COMPLETE. PATIENT LAYING IN BED IN LOW FOWLERS, NO DISTRESS NOTED. LOYD CATH IN PLACE SCANT URINE IN LOYD BAG, LOYD FOR RETENTION. LEFT FORARM WITH FLUIDS RUNNING AT THIS TIME. WEARING NASAL CANNULA WITH O2 AT 3L. CALL LIGHT WITHIN REACH AND BED IN LOWEST LOCKED POSITION.
[2020-02-18 19:58] VITALS: BP 162/80
[2020-02-19] VITALS: BP 146/79
[2020-02-19 04:00] VITALS: BP 138/68
[2020-02-19 07:16] LABS: BASOPHILS 0 % (0-2); EOSINOPHILS 0 % (0-7); HEMOGLOBIN 11.8 g/dL (13.5-17.5); IMMATURE GRANULOCYTES 1.2 % (0-5); LYMPHOCYTES 8.1 % (15-50); MCH 29.5 pg (26.0-34.0); MCHC 33.7 g/dL (31.0-37.0); MCV 87.5 fL (80.0-100.0); MEAN PLATELET VOLUME 9.7 fL (7.4-10.4); MONOCYTES 7.3 % (2-11); NEUTROPHILS 83.4 % (40-80); PLATELET COUNT 244 10x3/uL (130-400); RDW 13.9 % (11.5-14.5); WBC 11.2 10x3/uL (4.8-10.8)
[2020-02-19 07:35] LABS: ALBUMIN 2.9 g/dL (3.4-5.0); ALKALINE PHOSPHATASE 78 U/L (30-120); ALT (SGPT) 41 U/L (10-68); BILIRUBIN - TOTAL 0.28 mg/dL (0.2-1.3); CALC OSMOLALITY 261 mosm/kg (275-300); CALCIUM 8.1 mg/dL (8.5-10.1); CHLORIDE - SERUM 93 mmol/L (98-107); CREATININE - SERUM 0.8 mg/dL (0.6-1.3); GLUCOSE 123 mg/dL (74-106); POTASSIUM - SERUM 3.5 mmol/L (3.5-5.1); PROTEIN - SERUM 5.9 g/dL (6.4-8.2); SODIUM 129 mmol/L (136-145); UREA NITROGEN 18 mg/dL (7-18); eGFR NON AFRICAN AMERICAN > 90 mL/min (90-120)
--- NOTE | 2020-02-19 08:00 | NUR ---
PT RECEIVED AWAKE AND ALERT. ASKING FOR ASSISTANCE TO SIT ON SIDE OF BED FOR BREAKFAST.
--- NOTE | 2020-02-19 10:44 | NUR ---
SITTING IN BEDSIDE CHAIR NOW. COMPLAINTS OF LOYD STATLOCK PULLING. WILL CHANGE AND ADJUST.
--- NOTE | 2020-02-19 14:46 | NUR ---
OT NOTE: PT COMPLETED ADL MOB WITH RW REQUIRED CGA. PT COMPLETED STANDING BALANCE WITH CGA. PT COMPLETED SIT TO STAND WITH CGA. PT REQUIRED SET UP FOR FOR FACE HYGIENE. PT STATED EYES ARE DRY. NURSING AWARE. NOTIFIED NURSING STAFF THAT BED LOCKS ARE NOT FUNCTIONING PROPERLY. WORK ORDER PLACED. [phone] THANK YOU,NATASHA TURPIN
[2020-02-19 14:54] VITALS: BP 153/79
--- NOTE | 2020-02-19 14:58 | NUR ---
PT'S LOYD REMOVED PER ORDER. URINAL AT BEDSIDE. INSTRUCTED TO CALL WHEN VOIDS. RT IN ROOM FOR TREATMENT AND WALK TEST.
--- NOTE | 2020-02-19 16:31 | MORECARE ---
CASE MANAGEMENT DISCHARGE SUMMARY PATIENT: JOSÉ LUIS ZENG UNIT: [id number] ADM DATE: 02/16/20 AGE: 79 : 38 SEX: M ROOM/BED: D.2124 AUTHOR: SUSANNE OROZCO PHYSICIAN: REFERRING PHYSICIAN: RENETTA CRUZ MD DATE OF SERVICE: 02/19/20 Discharge Plan Patient Name: JOSÉ LUIS ZENG [facility]:[place] : 1940 Planned Disposition: Home Health Service Anticipated Discharge Date: Discharge Date: Expected LOS: Initial Reviewer: [email or web address] Initial Review Date: 02/16/2020 Generated: 02/19/20 5:31 pm Comments DCP- Discharge Planning Updated by [email or web address]: Shelly Sullivan on 02/19/20 3:[address] CM contacted Jordon Gastelum with [facility] for nursing O/A (used in past). Patient choice for home O2 is with [facility], he is familiar with them, spoke with [facility] and arranged home O2, with portability at 2L NC. If the patient requires a NEBULIZER PLEASE ENTER AN ORDER. CM met with patient for DC planning. Patient is in agreement to [facility]. Patient states he lives at home independently with his , Giovana ([phone]). PCP: Lise Samuels. Pharmacy: [facility]. DME: walker, cane, shower chair. Patient has 3 stairs, with rails at entry. CM discussed HS, SNF, Rehab. Patient is in agreement to [facility] with [facility] (had in the past). CM will assist PRN with continued DC planning. External [facility]iders [facility] Next Contact Date: Service Request Date: Service Type: Resolution: Reviewer: Comments: External Provider: Dejon Next Contact Date: Service Request Date: Service Type: Resolution: Reviewer: Comments: Coverage Notice Reviewer: [email or web address] - Shelly Sullivan Notice Issued Date-Time: 02/19/2020 16:30 Notice Type: Patient Choice Letter Notice Delivered To: Patient Relationship to Patient: Self Android Ui Developer Name: José Luis Zeng Delivery Method: HAND - Hand Delivered Nina Days: Prior Verbal Notification: Recipient Understood Notice: Yes Recipient Signature: Yes Med Rec Note Co-signed by Attending: Coverage Notice Comment: [facility] Patient Name: JOSÉ LUIS ZENG Page 10065 at 1631 All edits/amendments must be made on the electronic document DICTATION DATE: 02/19/20 163 CLAIMS SORTER: TUSHAR 02/19/20 1631 RPT#: [id number] DC DATE: STATUS: ADM IN [facility] [address] [place] [address] END OF REPORT
--- NOTE | 2020-02-19 16:55 | EC ---
PATIENT:JOSÉ LUIS MARTINEZ DATE OF SERVICE: 02/16/20 SEX: M MEDICAL RECORD: [id number] DATE OF : [birth year] LOCATION:D.M2 D.212 AGE OF PATIENT: 79 ADMISSION DATE: 02/16/20 REFERRING PHYSICIAN: INTERPRETING PHYSICIAN: WEI SINGH MD ECHOCARDIOGRAM REPORT ECHO CHARGES 4 ECHO COMPLETE Date: 02/17/20 CLINICAL DIAGNOSIS: LVH ECHOCARDIOGRAPHIC MEASUREMENTS (adult normal given) AC root (d.<3.7cm) 3.6 cm LV Septum d (<1.2 cm> 1.3 cm Valve Excursion 1.7 cm LV Septum (systole) 1.5 cm Left Atria (s.<4.0cm> 3.9 cm LVPW d(<1.2cm) 1.3 cm RV (d.<2.3cm) 3.4 cm LVPW (sytole) 1.6 cm LV diastole(<5.6CM) 5.2 cm MV E-F(>70mm/sec) cm LV systole 4.1 cm LVOT Diameter 1.9 cm MV exc.(>10mm) cm Est.ejection fraction (50-75%) % DOPPLER: LVIT cm/sec A 72 cm/sec E 79 cm/sec LA cm/sec RVSP 16 mmHg LVOT 88 cm/sec AOP1/2T m/s Asc. Ao 115 cm/sec RVOT 40 cm/sec RA cm/sec PA 57 cm/sec AV Gradient Peak 5.3 mmHg AV Mean 2.6 mmHg AV Area 2.4 cm MV Gradient Peak 2.1 mmHg MV Mean 1.2 mmHg MV Area cm COMMENTS: Clamp Truck Driver: Buddy BARBOZA Rn Transition: 3 Dr. Starkey TAPE# PACS Pericardial Effusion N DATE OF SERVICE: Adequate 2D, color-flow imaging, spectral Doppler, and M-Mode Mild LVH. LV internal dimensions are normal. Wall motion is normal. EF is greater than or equal to 55%. Aortic valve is tricuspid. No evidence of stenosis by Doppler interrogation. Left atrium is normal at 3.9 cm. Mitral valve shows no prolapse. Trivial MR. Right-sided chambers are grossly normal. Trivial TR. ECHOCARDIOGRAM REPORT [id number] JOSÉ LUIS MARTINEZ TRANSINT:[id number] Voice Confirmation ID: [id number] DOCUMENT ID: [id number] WEI SINGH MD at 1655 CC: [id number] DICTATION DATE: 02/18/20 0839 DRAW OFF WORKER: 02/18/20 1200 ADM IN [place] [id number] [place] [id number]
--- NOTE | 2020-02-19 19:38 | NUR ---
REPORT RECIEVED AND ROUNDING COMPLETE. PATIENT SITTING IN BED SIDE CHAIR, STRAIGHTENED PATIENT'S LINEN AND ASSISTED HIM INTO GETTING INTO BED. PATIENT'S ANKLE ARE SWOLLEN, LEFT FOREARM PIV IS SALINE LOCKED, PATIENT WEARING NASAL CANNULA WITH O2 AT 2L. NO DISTRESS NOTED. CALL LIGHT WITHIN REACH AND BED IN LOWEST LOCKED POSITION.
[2020-02-19 20:00] VITALS: BP 174/81
[2020-02-20 04:00] VITALS: BP 153/85
[2020-02-20 06:53] LABS: BASOPHILS 0.1 % (0-2); EOSINOPHILS 0.1 % (0-7); HEMATOCRIT 36.6 % (42.0-54.0); HEMOGLOBIN 12.5 g/dL (13.5-17.5); IMMATURE GRANULOCYTES 1.5 % (0-5); MCHC 34.2 g/dL (31.0-37.0); MEAN PLATELET VOLUME 9.4 fL (7.4-10.4); MONOCYTES 11.4 % (2-11); NEUTROPHILS 73.9 % (40-80); PLATELET COUNT 245 10x3/uL (130-400); RBC 4.16 10x6/uL (4.20-6.10); RDW 14.4 % (11.5-14.5)
[2020-02-20 07:22] LABS: ALBUMIN 3.2 g/dL (3.4-5.0); ALKALINE PHOSPHATASE 79 U/L (30-120); ALT (SGPT) 40 U/L (10-68); BILIRUBIN - TOTAL 0.32 mg/dL (0.2-1.3); CALC OSMOLALITY 265 mosm/kg (275-300); CALCIUM 8.4 mg/dL (8.5-10.1); CARBON DIOXIDE 31.2 mmol/L (21.0-32.0); CHLORIDE - SERUM 95 mmol/L (98-107); CREATININE - SERUM 0.9 mg/dL (0.6-1.3); GLUCOSE 91 mg/dL (74-106); POTASSIUM - SERUM 3.4 mmol/L (3.5-5.1); PROTEIN - SERUM 6.2 g/dL (6.4-8.2); SODIUM 131 mmol/L (136-145); UREA NITROGEN 20 mg/dL (7-18); eGFR NON AFRICAN AMERICAN 86 mL/min (90-120)
[2020-02-20 07:31] LABS: WBC 16.3 10x3/uL (4.8-10.8)
[2020-02-20 08:00] VITALS: BP 172/86
[2020-02-20 08:10] VITALS: BP 172/86
[2020-02-20 09:12] LABS: IMMUNOGLOBULIN E 9 IU/mL (6-495)
--- NOTE | 2020-02-20 10:13 | NUR ---
TELEMETRY PACED. RESP UL ON O2 3L NC. AMBULATING HALLWAY WITH PT ASSIST. WILL CONT. PLAN OF CARE.
--- NOTE | 2020-02-20 10:59 | NUR ---
URINE SPECIMEN COLLECTED AND TAKEN TO LAB. WILL MONITOR.
[2020-02-20 11:57] LABS: BILIRUBIN NEGATIVE (NEGATIVE); KETONE NEGATIVE (NEGATIVE); NITRITE NEGATIVE (NEGATIVE); UROBILINOGEN NORMAL mg/dL (< 2)
[2020-02-20 11:58] VITALS: BP 152/71
--- NOTE | 2020-02-20 12:51 | NUR ---
Nutrition Follow-up: Pt sitting in chair eating breakfast at time of visit this AM. Good appetite. Denies N/V/C/D. Reports that he did not sleep well last night. Diet: Cardiac Wt: 200# (02/16) Last BM: 02/18 Labs noted: Na 131, K+ 3.4, Ca 8.4, Alb 3.2 Meds noted: Prednisone, Florajen, Protonix, Lasix, KDur, electrolyte protocol -Encourage PO intake and honor food preferences within diet restrictions. -Need new wt if possible; noted daily wts ordered. -RD following.
--- NOTE | 2020-02-20 14:26 | NUR ---
OT NOTE: BED MOB WITH CGA/MIN ASSIST; SIT TO STAND WITH MIN ASSIST; PT STILL WITH SOB WITH MINIMAL EXERTION (INCLUDING CONVERSATION). SIMPLE GROOMING TASKS WITH SET UP AND REST BREAKS. MENA DUENAS, OTR/L [phone]
[2020-02-20] MEDS ORDERED: TESSALON PERLE100 MG PO (14:42)
[2020-02-20] MEDS ORDERED: MUCINEX DM ER1 EAC1 PO (14:42)
[2020-02-20] MEDS ORDERED: FLUTICASONE PRO16 GM NASAL (14:43)
[2020-02-20] MEDS ORDERED: OMNICEF300 MG PO (14:45)
[2020-02-20] MEDS ORDERED: AZITHROMYCIN500 MG PO (14:45)
[2020-02-20] MEDS ORDERED: VENTOLIN HFA [SP8 GM INH (14:45)
--- NOTE | 2020-02-20 15:32 | MORECARE ---
CASE MANAGEMENT DISCHARGE SUMMARY PATIENT: JOSÉ LUIS ZENG UNIT: [id number] ADM DATE: 02/16/20 AGE: 79 : 38 SEX: M ROOM/BED: D.2124 AUTHOR: ERNESTODOC PHYSICIAN: REFERRING PHYSICIAN: RENETTA CRUZ MD DATE OF SERVICE: 02/20/20 Discharge Plan Patient Name: JOSÉ LUIS ZENG Facility: [facility]:[place] : 1940 Planned Disposition: Home Health Service Anticipated Discharge Date: 02/20/20 Discharge Date: Expected LOS: 4 Initial Reviewer: [id number] Initial Review Date: 02/16/2020 Generated: 02/20/20 4:31 pm Comments DCP- Discharge Planning Updated by [email or web address]: Shelly Sullivan on 02/19/20 3:[address] CM contacted Jordon Gastelum with [facility] for nursing O/A (used in past). Patient choice for home O2 is with [facility], he is familiar with them, spoke with [facility] and arranged home O2, with portability at 2L NC. If the patient requires a NEBULIZER PLEASE ENTER AN ORDER. CM met with patient for DC planning. Patient is in agreement to select specialty hospital. Patient states he lives at home independently with his , Giovana ([phone]). PCP: iLse Samuels. [facility]acy[facility]. DME: walker, cane, shower chair. Patient has 3 stairs, with rails at entry. CM discussed HS, SNF, Rehab. Patient is in agreement to [facility] with [facility] (had in the past). CM will assist PRN with continued DC planning. Coverage Notice Reviewer: [id number] - Shelly Sullivan Notice Issued Date-Time: 02/19/2020 16:30 Notice Type: Patient Choice Letter Notice Delivered To: Patient Relationship to Patient: Self Control Room Supervisor Name: José Luis Zeng Delivery Method: HAND - Hand Delivered Nina Days: Prior Verbal Notification: Recipient Understood Notice: Yes Recipient Signature: Yes Med Rec Note Co-signed by Attending: Coverage Notice Comment: [facility] Reviewer: [id number] - Shelly Sullivan Notice Issued Date-Time: 02/19/2020 16:30 Notice Type: Patient Choice Letter Notice Delivered To: Patient Relationship to Patient: Self Control Room Supervisor Name: José Luis Zeng Delivery Method: HAND - Hand Delivered Nina Days: Prior Verbal Notification: Recipient Understood Notice: Yes Recipient Signature: Yes Med Rec Note Co-signed by Attending: Coverage Notice Comment: [facility] Reviewer: [id number] Loly Sullivan Notice Issued Date-Time: 02/19/2020 16:31 Notice Type: IM Discharge Notice Notice Delivered To: Patient Relationship to Patient: Self Control Room Supervisor Name: José Luis Zeng Delivery Method: HAND - Hand Delivered Nina Days: Prior Verbal Notification: Recipient Understood Notice: Yes Recipient Signature: Yes Med Rec Note Co-signed by Attending: Coverage Notice Comment: DC IMM Last DP export: 02/19/20 3:31 p Patient Name: JOSÉ LUIS ZENG Page [id number] at 1532 All edits/amendments must be made on the electronic document DICTATION DATE: 02/20/201530 SOUND TECHNICIAN: TUSHAR 02/20/20 153 RPT#: [id number] MACY DATE: STATUS: ADM IN [facility] [address] [place] [address] END OF REPORT
[2020-02-20 15:58] VITALS: BP 162/90
--- NOTE | 2020-02-20 17:31 | NUR ---
IV AND TELEMETRY DCD. DC PLANS GIVEN. UNDERSTANDING VOICED. ESCORTED TO CAR BY W/C.
--- NOTE | 2020-02-20 22:04 | NUR ---
OT NOTE: PT SITTING UP IN CHAIR. PT COMPLETED SIT TO STAND WITH CGA. PT COMPLETED ADL MOB WITH RW REQUIRED CGA. PT COMPLETED STANDING BALANCE WITH CGA. PT REQUIRED MIN A FOR OFELIA SOCKS. PT REQUESTED TO GO BACK TO BED INSTEAD OF CHAIR. [phone] RUTHANN MURRY COTA
--- NOTE | 2020-02-21 09:23 | MORECARE ---
CASE MANAGEMENT DISCHARGE SUMMARY PATIENT: JOSÉ LUIS ZENG UNIT: [id number] ADM DATE: 02/16/20 AGE: 79 : 38 SEX: M ROOM/BED: D.2124 AUTHOR: ERNESTO,DOC PHYSICIAN: REFERRING PHYSICIAN: RENETTA CRUZ MD DATE OF SERVICE: 02/21/20 Discharge Plan Patient Name: JOSÉ LUIS ZENG Facility: [facility]:[place] : 1940 Planned Disposition: Home Health Service Anticipated Discharge Date: 02/20/20 Discharge Date: 02/20/2020 Expected LOS: 4 Initial Reviewer: [id number] Initial Review Date: 02/16/2020 Generated: 02/21/20 10:23 am Comments DCP- Discharge Planning Updated by [email or web address]: Shelly Sullivan on 02/19/20 3:[address] CM contacted Jordon Gastelum with [facility] [place] for nursing O/A (used in past). Patient choice for home O2 is with [facility], he is familiar with them, spoke with [facility] and arranged home O2, with portability at 2L NC. If the patient requires a NEBULIZER PLEASE ENTER AN ORDER. CM met with patient for DC planning. Patient is in agreement to [facility]. Patient states he lives at home independently with his , Giovana ([phone]). PCP: Lise Samuels. [facility]acy[facility]. DME: walker, cane, shower chair. Patient has 3 stairs, with rails at entry. CM discussed HS, SNF, Rehab. Patient is in agreement to [facility] [place] with [facility] (had in the past). CM will assist PRN with continued DC planning. Coverage Notice Reviewer: [id number] - Shelly Sullivan Notice Issued Date-Time: 02/19/2020 16:30 Notice Type: Patient Choice Letter Notice Delivered To: Patient Relationship to Patient: Self Catalogue Compiler Name: José Luis Zeng Delivery Method: HAND - Hand Delivered Nina Days: Prior Verbal Notification: Recipient Understood Notice: Yes Recipient Signature: Yes Med Rec Note Co-signed by Attending: Coverage Notice Comment: [facility] Reviewer: [id number] Loly Sullivan Notice Issued Date-Time: 02/19/2020 16:30 Notice Type: Patient Choice Letter Notice Delivered To: Patient Relationship to Patient: Self Catalogue Compiler Name: José Luis Zeng Delivery Method: HAND - Hand Delivered Nina Days: Prior Verbal Notification: Recipient Understood Notice: Yes Recipient Signature: Yes Med Rec Note Co-signed by Attending: Coverage Notice Comment: [facility] Wray Reviewer: [id number] Loly Sullivan Notice Issued Date-Time: 02/19/2020 16:31 Notice Type: IM Discharge Notice Notice Delivered To: Patient Relationship to Patient: Self Catalogue Compiler Name: José Luis Zeng Delivery Method: HAND - Hand Delivered Nina Days: Prior Verbal Notification: Recipient Understood Notice: Yes Recipient Signature: Yes Med Rec Note Co-signed by Attending: Coverage Notice Comment: DC IMM Last DP export: 02/20/20 2:32 p Patient Name: JOSÉ LUIS ZENG Page [phone] at 0923 All edits/amendments must be made on the electronic document DICTATION DATE: 02/21/20922 BAND AID MACHINE OPERATOR: TUSHAR 02/21/20922 RPT#: [id number] DC DATE:02/20/20 STATUS: DIS IN [facility] [address] [place] [address] END OF REPORT
== END 2020-02-20 17:31 | disposition home health service (06) | DRG 291 ==
LOC: D.ER 18:24 → D.M2 21:38
PROVIDERS: Family Medicine; Internal Medicine Pulmonary Disease; ADMIT Family Medicine; ATTEND Family Medicine
DX: I11.0 Hypertensive heart disease with heart failure (principal); J18.9 Pneumonia, unspecified organism; J96.21 Acute and chronic respiratory failure with hypoxia; I50.31 Acute diastolic (congestive) heart failure; J44.0 Chronic obstructive pulmonary disease with (acute) lower respiratory infection; E87.1 Hypo-osmolality and hyponatremia; J98.11 Atelectasis; J44.1 Chronic obstructive pulmonary disease with (acute) exacerbation; I25.10 Atherosclerotic heart disease of native coronary artery without angina pectoris; E87.6 Hypokalemia; M19.90 Unspecified osteoarthritis, unspecified site; L40.9 Psoriasis, unspecified; D64.9 Anemia, unspecified; J30.9 Allergic rhinitis, unspecified; Z87.891 Personal history of nicotine dependence

== ENCOUNTER 2020-02-23 09:40 | Inpatient (IN) | payer MEDICARE ==
[~2020-02-23] VITALS: Ht 182.9 cm; Wt 90.7 kg
[~2020-02-23 09:40] MED LIST changes: +AZITHROMYCIN500 MG PO; +OMNICEF300 MG PO; +TESSALON PERLE100 MG PO; +VENTOLIN HFA [SP8 GM INH
[2020-02-23 09:58] VITALS: Ht 182.9 cm; Wt 90.7 kg
[2020-02-23] MEDS ORDERED: ZYRTEC10 MG PO (10:01)
[2020-02-23 10:41] LABS: BASOPHILS 0.1 % (0-2); EOSINOPHILS 0.3 % (0-7); HEMATOCRIT 39.7 % (42.0-54.0); HEMOGLOBIN 13.7 g/dL (13.5-17.5); IMMATURE GRANULOCYTES 1.1 % (0-5); MCH 30.2 pg (26.0-34.0); MCHC 34.5 g/dL (31.0-37.0); MCV 87.6 fL (80.0-100.0); MEAN PLATELET VOLUME 9.5 fL (7.4-10.4); MONOCYTES 12.1 % (2-11); NEUTROPHILS 78.4 % (40-80); PLATELET COUNT 217 10x3/uL (130-400); RBC 4.53 10x6/uL (4.20-6.10); RDW 14.1 % (11.5-14.5); WBC 15.7 10x3/uL (4.8-10.8)
[2020-02-23 10:53] LABS: APTT 37.1 SECONDS (22.8-39.4); CALC OSMOLALITY 253 mosm/kg (275-300); CALCIUM 8.8 mg/dL (8.5-10.1); CARBON DIOXIDE 32.5 mmol/L (21.0-32.0); CHLORIDE - SERUM 91 mmol/L (98-107); GLUCOSE 95 mg/dL (74-106); INR 1.39 (0.85-1.17); PROTIME 16.9 SECONDS (11.6-15.0); SODIUM 126 mmol/L (136-145); UREA NITROGEN 15 mg/dL (7-18); eGFR NON AFRICAN AMERICAN 76 mL/min (90-120)
[2020-02-23 11:01] LABS: ALBUMIN 3.4 g/dL (3.4-5.0); ALKALINE PHOSPHATASE 87 U/L (30-120); ALT (SGPT) 54 U/L (10-68); AMYLASE - SERUM 44 U/L (25-115); BILIRUBIN - TOTAL 0.65 mg/dL (0.2-1.3); LIPASE 101 U/L (73-393); PROTEIN - SERUM 6.6 g/dL (6.4-8.2); TROPONIN-I 0.026 ng/mL (0.000-0.060)
[2020-02-23 14:45] VITALS: BP 139/78
[2020-02-23 16:00] VITALS: BP 120/78
[2020-02-24 07:10] VITALS: BP 131/80
--- NOTE | 2020-02-24 07:40 | NUR ---
PT CARE ASSUMED AT THIS TIME, PT IS AWAKE, ORIENTED X 4, ASSISTED UP TO CHAIR AND EXCHANGED ER STRETCHER FOR HOSPITAL BED, PT ABLE TO TRANSFER WITH STANDBY ASSIST, RESPIRATIONS EVEN AND UNLABORED, PULSES EQUAL AND STRONG, PACEMAKER NOTED, ASSISTED BACK TO BED, HAS MAINTENANCE FLUIDS INFUSING TO LEFT ARM WITHOUT SIGNS OF INFILTRATION, DENIES NEEDS AT THIS TIME, BED LOW AND LOCKED, VSS ON MONITOR, NAD NOTED, CALL LIGHT IN REACH.
[2020-02-24 07:58] LABS: BASOPHILS 0 % (0-2); EOSINOPHILS 0.6 % (0-7); HEMATOCRIT 36.1 % (42.0-54.0); HEMOGLOBIN 12.2 g/dL (13.5-17.5); IMMATURE GRANULOCYTES 0.6 % (0-5); LYMPHOCYTES 7.5 % (15-50); MCH 30.1 pg (26.0-34.0); MCHC 33.8 g/dL (31.0-37.0); MCV 89.1 fL (80.0-100.0); MEAN PLATELET VOLUME 9.8 fL (7.4-10.4); MONOCYTES 12.2 % (2-11); NEUTROPHILS 79.1 % (40-80); PLATELET COUNT 177 10x3/uL (130-400); RBC 4.05 10x6/uL (4.20-6.10); RDW 14.3 % (11.5-14.5); WBC 16.2 10x3/uL (4.8-10.8)
[2020-02-24 09:15] VITALS: BP 141/76
[2020-02-24 09:45] LABS: ALBUMIN 2.8 g/dL (3.4-5.0); ALKALINE PHOSPHATASE 74 U/L (30-120); ALT (SGPT) 46 U/L (10-68); BILIRUBIN - TOTAL 0.37 mg/dL (0.2-1.3); CALCIUM 8.3 mg/dL (8.5-10.1); CARBON DIOXIDE 30.8 mmol/L (21.0-32.0); CHLORIDE - SERUM 95 mmol/L (98-107); GLUCOSE 86 mg/dL (74-106); POTASSIUM - SERUM 3.3 mmol/L (3.5-5.1); PROTEIN - SERUM 5.9 g/dL (6.4-8.2); SODIUM 130 mmol/L (136-145)
[2020-02-24 09:46] LABS: CALC OSMOLALITY 258 mosm/kg (275-300); CREATININE - SERUM 0.7 mg/dL (0.6-1.3); UREA NITROGEN 11 mg/dL (7-18); eGFR NON AFRICAN AMERICAN > 90 mL/min (90-120)
[2020-02-24 10:00] VITALS: BP 150/72
[2020-02-24 10:45] VITALS: BP 143/79
--- NOTE | 2020-02-24 11:25 | NUR ---
FLAGYL INFUSION COMPLETE AT THIS TIME.
[2020-02-24 13:49] VITALS: BP 133/73
[2020-02-24] MEDS ORDERED: FLAGYL500 MG PO (14:11)
[2020-02-24] MEDS ORDERED: CIPRO500 MG PO (14:11)
[2020-02-24 15:00] VITALS: BP 133/86
--- NOTE | 2020-02-24 15:00 | NUR ---
PT DISCHARGED BY ATTENDING, D/C INSTRUCTIONS REVIEWED AND FOLLOW UP CARE REVIEWED WITH PATIENT. DENIES QUESTIONS AT TIME OF DISCHARGE.
== END 2020-02-24 15:00 | disposition home or self-care (01) | DRG 391 ==
LOC: D.ER 09:40 → D.EDHOLD 14:51
PROVIDERS: Family Medicine; ADMIT Family Medicine Adult Medicine; ATTEND Family Medicine Adult Medicine
DX: K52.9 Noninfective gastroenteritis and colitis, unspecified (principal); K57.91 Diverticulosis of intestine, part unspecified, without perforation or abscess with bleeding; D62 Acute posthemorrhagic anemia; E87.1 Hypo-osmolality and hyponatremia; E87.6 Hypokalemia; I25.10 Atherosclerotic heart disease of native coronary artery without angina pectoris; I10 Essential (primary) hypertension; J44.9 Chronic obstructive pulmonary disease, unspecified; M19.90 Unspecified osteoarthritis, unspecified site; L40.9 Psoriasis, unspecified; Z95.0 Presence of cardiac pacemaker; I25.2 Old myocardial infarction; Z85.828 Personal history of other malignant neoplasm of skin